=== PATIENT | male | born 1995 | race Caucasian/White ===

== ENCOUNTER → 2020-08-03 15:05 | Outpatient (CLI) | payer MEDICAID, SELFPAY ==
[2020-08-03 15:48] LABS: Absolute Lymphocyte Count 1.63 X10^3/uL (0.83-4.51); Absolute Neutrophil Count 2.1 X10^3/uL (2.0-7.7); Basophil# 0.03 X10^3/uL; Basophil% 0.7 % (0-1); Eosinophil# 0.07 X10^3/uL; Eosinophils% 1.6 % (0-5); Hemoglobin 15.2 g/dL (13.0-16.5); Lymphocyte # 1.63 X10^3/ul (4.0); Lymphocyte % 37.3 % (19-41); Mean Corp Hgb Conc 33.8 g/dL (32-36); Mean Corpuscular Volume 91.6 fL (80-94); Mean Platelet Vol. 12.1 fl (6.2-12.0); Monocyte# 0.53 X10^3/uL; Monocyte% 12.1 % (0-10); NRBC Flagged by Analyzer 0 % (0-5); Neutrophil % 48.1 % (47-70); Platelet Count 197 K/mm3 (150-450); RBC Distribution Width CV 11.4 % (11.6-14.6); RBC Distribution Width SD 38.5 fl (35.1-43.9); Red Blood Count 4.91 M/mm3 (4.6-6.2); White Blood Count 4.4 K/mm3 (4.4-11.0)
[2020-08-03 16:55] LABS: ALB/GLOB Ratio 1.3 RATIO (0.9-2.4); AST(SGOT) 12 U/L (15-37); Alanine Aminotransfer ALT/SGPT 17 U/L (16-61); Albumin, Serum 4.3 g/dL (3.2-5.0); Alkaline Phosphatase 70 U/L (45-117); Anion Gap 4 (5-15); BUN 9 mg/dL (7-18); BUN/Creat Ratio 10.7 RATIO (10-20); CRP < 2.90 mg/L (0.0-3.0); Calcium,Total 9.2 mg/dL (8.5-10.1); Chloride 105 mmol/L (98-107); Cholesterol 116 mg/dL (200); Creatinine, Serum 0.84 mg/dL (0.70-1.30); EST Glomerular Filtration Rate 116 mL/min (>60); Est Glom Filt Rate - Afr Amer 141 mL/min (>60); Globulin 3.2 g/dL (2.2-4.2); Glucose 83 mg/dL (74-106); High Density Lipoprotein 35 mg/dL; Potassium 3.9 mmol/L (3.5-5.1); Protein, Total 7.5 g/dL (6.4-8.2); Rheumatoid Factor < 10.0 IU/mL (<15); Sodium Level 137 mmol/L (136-145); T4 Free Direct 1.39 ng/dL (0.76-1.46); Thyroid Stim Hormone (TSH) 0.82 uIU/mL (0.358-3.74); Triglycerides 78 mg/dL; Very Low Density Lipoprotein 16 mg/dL (5-40)
[2020-08-03 17:09] LABS: HIV - WCH Non-Reactive (Nonreactive)
[2020-08-03 17:19] LABS: Hemoglobin A1c 5.1 % (3.8-5.6)
[2020-08-04 08:43] LABS: Erythrocyte Sedimentation Rate 2 mm/hr (0-15)
[2020-08-04 10:43] LABS: Hepatitis C Antibody Non-Reactive (Nonreactive)
[2020-08-05 02:04] LABS: Rapid Plasmin Reagin (RPR) NONREACTIVE (NONREACTIVE)
[2020-08-05 15:08] LABS: ANTINUCLEAR ANTIBODIES DIRECT Negative (Negative)
== END ==
PROVIDERS: Referring Provider Nurse Practitioner Family; Visit Provider Nurse Practitioner Family
DX: F41.9 Anxiety disorder, unspecified (principal); F33.1 Major depressive disorder, recurrent, moderate; Z20.9 Contact with and (suspected) exposure to unspecified communicable disease; R53.83 Other fatigue
CPT/HCPCS: 36415; 80053; 80061; 82306; 83036; 84439; 84443; 85025; 85652; 86038; 86140; 86431; 86592; 86703; 86803

== ENCOUNTER 2021-03-15 09:00 | Outpatient (RCR) | payer MEDICAID, SELFPAY ==
--- NOTE | 2021-03-15 09:02 | BH.SGPN.GN ---
Behaviors/Verbalizations/Mental Status: []Pt eye contact fair, casually dressed, motor activity appropriate, speech normal rate and tone, mood anxious, constricted affect, thoughts linear and intact, no evidence of delusions or hallucinations. Client Response/Progress/Benefit: [] Patient has a precipitant as evidenced by him providing limited input. Patient shared feeling tired this morning because he had a hard time sleeping last night due to feeling anxious. Patient appeared to connect with other group members comments as evidenced by him nodding his head. Seemed to benefit from support from peers and being oriented to IOP. Patient's first day in IOP. Patient recommended to continue IOP to increase healthy coping skills, improve functioning, and prevent decompensation. Narrative Note: []
--- NOTE | 2021-03-15 10:10 | BH.SGPN.GN ---
Behaviors/Verbalizations/Mental Status: []Eye contact is good. Motor activity is appropriate. Appearance is casual. Speech is Appropriate. Mood is anxious, depressed. Affect is constricted. Thoughts are linear and logical. No evidence of psychosis. Client Response/Progress/Benefit: [] Pt first day in IOP tx, receptive of group and was an engaged participant. Remained attentive and took notes throughout, however taking on a more passive role. Attentive as group worked to process quote, nodding throughout discussion on importance of celebrating small accomplishments when working towards a goal. Listened as group members identified the benefits of setting goals which include: sense of accomplishment, builds self-esteem, increases motivation, holds us accountable, and helps to measure progress. Again, remaining attentive as peers worked to identify the barriers to setting goals or things that keep us from accomplishing goals. Pt declined to identify his own personal barrier to achieving goals, though nodding as peers discussed negative self-talk as a barrier. Attentive during psycho-education on developing SMART (Specific, Measurable, Achievable, Realistic, Timely) goals. Benefited from education on the benefits of goal-setting and increased insight into skills to set realistic and attainable goals. Narrative Note: []
--- NOTE | 2021-03-15 11:10 | BH.SGPN.GN ---
Behaviors/Verbalizations/Mental Status: []Client alert and oriented, casually dressed and groomed. Eye contact fair. Motor activity appropriate. Speech within normal limits. Affect constricted, mood anxious and dysthymic. Thoughts linear, logical, no signs of hallucinations or delusions. Client Response/Progress/Benefit: []Client was engaged during discussion, did well to complete activity and process with the group. Client was willing to complete the worksheet in which he was challenged to develop a personal SMART goal. Client chose the goal to get back to working out for 30 minutes a day for the next five days. Client stated this will benefit him by giving him an outlet and will increase self-esteem. Client identified barriers which included: breathing problems, negative thinking, and feeling unmotivated. Client worked with his small group to identify solutions for his barriers, and they were able to identify a solution for each barrier.. Benefited from this group by developing a short-term SMART goal related to mental health. First day of IOP tx. Will continue IOP tx to prevent decompensation, learn healthy coping skills, and improve overall functioning. Narrative Note: []
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
--- NOTE | 2021-03-15 14:49 | BH.MTP_ITS ---
Master Treatment Plan - Patient Information Program Physician:: Dr. Ibarra Primary Therapist:: Annailse Keene, [facility] - Psychiatric Diagnoses Psychiatric Diagnoses:: Dysthymia; major depressive disorder, recurrent, severe without psychosis; PTSD; anxiety disorder, NOS; history of ADHD; Cluster B traits Diagnosis Code(s):: F34.1 - Estimated LOS Estimated LOS (in weeks):: 6 Problem/Goal #1 - Problem/Goal #1 Stated Goal:: Client will decrease depressive symptoms, isolation, and worthlessness due to Major Depressive Disorder through Intensive Outpatient Program. Description of Barriers: Pt's negative thoughts, low motivation, apathy, loss of interest, difficulty getting out of bed, paranoia, poor emotion regulation and limited support system could be barriers to treatment progress. Functional Impact: Pt referred by grandparent due to worsening depression, anxiety and suicidal ideation. About a month ago pt had suicidal ideation with plan and intent to shoot self with roommate's gun. Pt did not follow through with plan instead reached out to friends for support. Pt's depression and anxiety had impacted pt's ability to maintain a job for more than 3 months at a time. Pt's anxious symptoms make it hard at [facility] to go to grocery stores, pump gas, go out with friends and makes daily activities difficult. Pt endorses depressed mood with no motivation, no energy, increased sleep, anhedonia, no concentration, racing thoughts, paranoia, hopelessness, and worthlessness. Pt denies active suicidal thoughts currently. States he has passive thoughts of , but no thoughts of wanting to actually kill himself. - Objectives Objective #1 Stated Objective: Client will learn and utilize 2-3 healthy coping strategies to manage depressive symptoms. Interventions: Therapist will utilize CBT techniques to assist client with understanding the connection between thoughts, feelings and behaviors. Education will be provided on behavioral activation. Therapist will assist client in learn ing internal coping strategies to manage depressive symptoms, along with helping client identify triggers. Discharge Criteria: Client will have achieved this goal when can verbalize and practiced at least 2 healthy coping strategies that successfully manage depressive symptoms. Target Date: 04/26/21 Review Date: 04/12/21 Objective #2 Stated Objective: Pt will decrease depressive symptoms AEB pt?s score on the DSM 5 cross-cutting measure and improve pt?s daily functioning. Interventions: Through groups and individual therapy, pt will be provided with education on cognitive distortions, mistaken beliefs, and identifying and combating negative self-talk. Therapist will assist pt with getting back into the activities she once enjoyed as well as increasing healthy coping strategies. Discharge Criteria: Pt will have met this goal when pt?s score on the DSM 5 cross cutting measure for depression has been decreased and per pt?s report daily functioning has improved. Target Date: 04/26/21 Review Date: 04/12/21 Problem/Goal #2 - Problem/Goal #2 Stated Goal:: Client will reduce overall frequency, intensity, and duration of the anxiety so that daily functioning is not impaired. Description of Barriers: Pt's negative thoughts, low motivation, apathy, loss of interest, difficulty getting out of bed, paranoia, poor emotion regulation and limited support system could be barriers to treatment progress. Functional Impact: Pt referred by grandparent due to worsening depression, anxiety and suicidal ideation. About a month ago pt had suicidal ideation with plan and intent to shoot self with roommate's gun. Pt did not follow through with plan instead reached out to friends for support. Pt's depression and anxiety had impacted pt's ability to maintain a job for more than 3 months at a time. Pt's anxious symptoms make it hard at [facility] to go to grocery stores, pump gas, go out with friends and makes daily activities difficult. Pt endorses depressed mood with no motivation, no energy, increased sleep, anhedonia, no concentration, racing thoughts, paranoia, hopelessness, and worthlessness. Pt denies active suicidal thoughts currently. States he has passive thoughts of , but no thoughts of wanting to actually kill himself. - Objectives Objective #1 Stated Objective: Client will learn and implement 2-3 calming skills to reduce overall anxiety and manage anxiety symptoms. Interventions: Therapist will provide psychoeducation about common trauma responses. Assist pt with identifying warning signs of anxiety. Will help pt. explore symptoms and helpful coping skills for intrusive thoughts.Therapist will teach client calming/relaxation skills and assign client homework which practices relaxation skills daily.? Discharge Criteria: Client will have achieved this goal when can verbalize at least 2 calming skills and successfully implement skills to help manage anxious symptoms. Target Date: 04/26/21 Review Date: 06/08/21 Objective #2 Stated Objective: Pt will decrease anxious symptoms AEB pt?s score on the DSM 5 cross-cutting measure improve pt?s daily functioning. Interventions: Through groups and individual therapy, pt will be provided education about anxiety?s impact on body and common physiological reaction to anxiety. Therapist will teach pt appropriate breathing techniques and build healthy coping skills to manage daily anxieties. Discharge Criteria: Pt will have met this goal when pt?s score on the DSM 5 cross cutting measure for anxiety has been decreased and per pt?s report daily functioning has improved. Target Date: 04/26/21 Review Date: 04/12/21
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
[2021-03-16 09:55] VITALS: BP 128/76; PULSE 75
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
--- NOTE | 2021-03-16 13:12 | BH.DR.ITP ---
Initial Treatment Plan Patient Information Visit Information: ADMISSION DATE: EXPECTED LOS: 4-6 weeks Problems/Symptoms Problem #1:: Depression Symptom:: Sadness, hopelessness, worthlessness, low motivation, anhedonia, biological disruption of sleep and appetite, low energy and concentration, guilt, passive thoughts of , history of suicidal ideation Symptom:: . Problem #2:: Anxiety Symptom:: Worry, rumination, panic attacks, flashbacks, nightmares, reexperiencing, avoidance
--- NOTE | 2021-03-18 09:03 | BH.SGPN.GN ---
Behaviors/Verbalizations/Mental Status: []Pt eye contact poor, casually dressed, motor activity appropriate, speech normal rate and tone, mood depressed and agitated, congruent affect, thoughts linear and intact, no evidence of delusions or hallucinations. Patient indicated suicidal ideation as a 2/5 which is below usual baseline, no plan or intent on daily symptom tracker. Client Response/Progress/Benefit: [] Patient receptive of session, though struggling to remain engaged throughout AEB looking down much of session and self-reported ruminating thoughts. Pt shared he had been doing well for a few days but then had an argument with his fianc? and has been struggling since. Expressed feeling she is unwilling to address a prior discretion that pt feels is a barrier to the relationship. Declined to share further and expressed feelings of hopelessness; however, was receptive of group encouragement and suggestions on strategies to begin improving overall mood and perspective. Continues to struggle with internalizing skills, interpersonal skills, and negative self-talk which impact progress and reinforce depressive sx. Patient to continue IOP to promote healthy change behaviors, continue to improve sx management and communication with supports, and prevent decompensation. Narrative Note: []
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
--- NOTE | 2021-03-18 11:15 | BH.SGPN.GN ---
Behaviors/Verbalizations/Mental Status: []Client alert and oriented, casually dressed and groomed. Eye contact fair. Motor activity appropriate. Speech within normal limits. Affect flat, mood depressed. Thoughts linear, logical, no signs of hallucinations or delusions. Client Response/Progress/Benefit: []Client engaged participant AEB pt providing input throughout discussion, engaged in activity and appeared to listen attentively to peers. Appeared to listen ideas on how to cope with internal barriers that keep clients stuck from moving towards goals. Client able to identify barriers to desired reality which includes: fear of failure and not being good enough, toxic family, trapped from past, difficulty setting boundaries, and anger. Client stated he wants to focus on setting realistic expectations to help with fear of failure. Benefited from group by identifying obstacles and solutions to desired reality. Will continue IOP tx to increase healthy coping skills, challenge distorted thoughts and prevent decompensation. Narrative Note: []
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
--- NOTE | 2021-03-21 09:00 | BH.SGPN.GN ---
Behaviors/Verbalizations/Mental Status: [] Eye contact is good. Motor activity is appropriate. Appearance is casual. Speech is Appropriate. Mood is depressed. Affect is flat. Thoughts are linear and logical. No evidence of psychosis. Reviewed daily check in sheet and pt reports 1/5 for suicidal thoughts and 0/5 for intent. Client Response/Progress/Benefit: [] Pt was an active participant in group discussion. Attentive. Provided appropriate feedback. Reports that his weekend was not the greatest Received his COVID which led to fatigue and sleeping. Reports I was super anxious all weekend and I had a panic attack. The panic attacks lasted about 30 minutes. He discussed some stressors however was superficial. Limited progress noted. Mental health win was getting up and coming to IOP today. Benefited from group discussion, support, and encouragement. Will continue in IOP to maintain safety, increase healthy coping skills, and prevent decompensation. Narrative Note: []
--- NOTE | 2021-03-21 10:05 | BH.SGPN.GN ---
Behaviors/Verbalizations/Mental Status: []Client alert and oriented, neatly dressed and groomed. Eye contact good. Motor activity appropriate. Speech within normal limits. Affect constricted, mood depressed. Thoughts linear, logical, no signs of hallucinations or delusions. Client Response/Progress/Benefit: []Pt was mostly a passive participant in group discussion, but took notes and provided some input. Connected with quote. Attentive during psychoeducation. Pt worked with group to identify forces that can impact growth and overall mental health. Pt was doing a lot of nodding during the metaphor and shared that finding balance between positive and negative forces requires willingness to adjust. Group discussed examples of positive forces such as healthy coping skills and insight as well as negative forces such as distorted thoughts. Pt benefited from increased awareness of the impact positive and negative forces can have on mental health and personal growth. Will continue IOP tx to prevent decompensation, learn healthy coping skills, and increase emotional regulation skills. Narrative Note: []
--- NOTE | 2021-03-21 11:06 | BH.SGPN.GN ---
Behaviors/Verbalizations/Mental Status: []Client alert and oriented, casually dressed and groomed. Eye contact good. Motor activity appropriate. Speech WNL. Affect congruent, mood anxious and depressed. Thoughts linear, logical, no signs of hallucinations or delusions. Client Response/Progress/Benefit: []Pt engaged during session AEB providing input when elicited, actively participating in activity, completing worksheet, and taking notes throughout. Did well to take on a leadership role in activity portion of session. Group processed the activity and identified positive and negative forces impacting ability to complete the challenge. Pt was attentive during psychoeducation and appeared to benefit from increased insight on the impact of own personal negative and positive forces on mental wellness. Identified personal positive forces as: coming to IOP tx, his grandma, motivation to be a ?better person?, medication, and willingness to work on mental health. Noted plans to increase positive impact of his supports by reaching out to then more consistently. Identified negative forces as: negative thoughts, lack of healthy distress tolerance skills, poor self-compassion, arguing with his fianc?, and no job/financial strain. Identified wanting to focus on improving his ability to better cope with distress. Recommended continued IOP tx to increase healthy coping skill application, continue to improve emotional stability, and prevent decompensation. Narrative Note: []
--- NOTE | 2021-03-23 09:03 | BH.SGPN.GN ---
Behaviors/Verbalizations/Mental Status: []Client alert and oriented, neatly dressed and groomed. Eye contact good. Motor activity appropriate. Speech within normal limits. Affect congruent, mood euthymic and anxious. Thoughts linear, logical, no signs of hallucinations or delusions. Reviewed client?s symptom tracker, risk for suicidal ideation reported as 1/ which is below baseline, denies plan, or intent as of 03/23/21 Client Response/Progress/Benefit: [] Client responded well to session, attentive and engaged. Client reports feeling hopeful this morning which is much improved from feeling depressed last week. Shared he attributes this to reaching out to his grandmother for support. Identified current positives as making strides in his ability to identify and challenge negative perspective, continue coming to IOP tx, and spending time outdoors for grounding/mindfulness purposes. Client expressed this helped him to challenge negative thoughts of not feeling supported and fears of struggling with his mental health terminal carman. Identified coping skills he has been using to include opposite action, positive self-talk, reaching out to supports, perspective challenging, and making time for self-care. Appeared to benefit from reflecting on progress. Will continue IOP tx to promote gains, further decrease depressive sx, and improve daily functioning. Narrative Note: []
--- NOTE | 2021-03-23 10:10 | BH.SGPN.GN ---
Behaviors/Verbalizations/Mental Status: []Client alert and oriented, casually dressed and groomed. Eye contact fair. Motor activity appropriate. Speech within normal limits. Affect constricted. Mood dysthymic and anxious. Thoughts linear, logical, no signs of hallucinations or delusions. Client Response/Progress/Benefit: []Pt responded well to session AEB pt providing input and listening attentively to peers. Worked with group to identify external barriers that can keep us stuck include: intrusive thoughts, anxiety, outside stressors, past trauma, environment, work place, and mental health. Worked with group to identify internal barriers that keep us stuck include: fear of failure, avoidance, negative self-talk, shut down, avoidance, sleep, using substances, and other unhealthy coping skills. Attentive to discussion about underlying thoughts behind what keeps people stuck. Pt shared negative thoughts that keep him stuck include: I can't ever make up for what I've done; I'll never have a healthy life because can't do anything right. Pt seemed to benefit from increased awareness of maintenance cycles. Pt to continue IOP to continue use of healthy coping, challenge distorted thoughts and prevent decompensation. Pt to continue IOP to increase use of healthy coping, challenge distorted thoughts and prevent decompensation.
--- NOTE | 2021-03-23 11:15 | BH.SGPN.GN ---
Behaviors/Verbalizations/Mental Status: []Client alert and oriented, casually dressed and groomed. Eye contact good. Motor activity appropriate. Speech within normal limits. Affect constricted, mood depressed. Thoughts linear, logical, no signs of hallucinations or delusions. Client Response/Progress/Benefit: []Client responded well to session, contributing to discussion and providing good feedback. Client appeared to connect with maintenance cycles and recognized how negative thinking can keep a person stuck. Client identified a negative thought that has kept client stuck. Client?s negative thought was ?my partner doesn?t really love me because I?m a loser, annoying, and just a comfort stepping stop for her.? Client acknowledges this thought is unrealistic as it is labeling and a magnification. Client reframed this thought to ?we?ve been together for so long, she must love me if she?s been here.? Client shared reframing this thought would make client feel better about talking with his partner and he would feel less drained. Client appeared to benefit from practicing challenging negative thinking. Will continue IOP tx to prevent decompensation, reduce depressive thought patterns, and improve functioning. Narrative Note: []
--- NOTE | 2021-03-25 10:12 | BH.SGPN.GN ---
Behaviors/Verbalizations/Mental Status: []Client alert and oriented, casually dressed, hygiene appeared to be tended to. Eye contact fair. Motor activity appropriate. Speech within normal limits. Affect constricted, mood dysthymic. Thoughts linear, logical, no signs of hallucinations or delusions. Client Response/Progress/Benefit: []Client responded well to session, attentive and engaged throughout discussion and activity. Client worked with group to identify impacts of fearing failure. Client stated fear of failing can head to self-sabotage which then leads to withdrawing from others. Assisted group with identifying how fear of failure can form which includes: past failures, family dynamics, comparing self to others, and high expectations. Client seemed to connect how failures can lead to positive changes. Client appeared to benefit from gaining awareness of the impact fear of failure can have on one?s mental health and wellbeing. Will continue IOP to continue use of healthy coping, reduce negative thinking, and prevent decompensation.
--- NOTE | 2021-03-25 11:12 | BH.SGPN.GN ---
Behaviors/Verbalizations/Mental Status: []Client alert and oriented, casually dressed and groomed. Eye contact good. Motor activity WNL. Speech within normal limits. Affect constricted, mood anxious and dysthymic. Thoughts linear, logical, no signs of hallucinations or delusions. Client Response/Progress/Benefit: []Client responded well to session, engaged and actively participating throughout. Client completed the fear of failure worksheet and reported that fear of failure has kept client from keeping a job and reaching his goals. Client able to identify thoughts and behaviors that reinforce personal fear of failure which included: black and white morals, societal standards, self-criticism, and not acknowledging strengths. Client attentive during discussion of the different strategies to help overcome fear of failure. Identified wanting to work on lowering his expectations so they are more realistic. Client appeared to benefit from learning ways to overcome fear of failure. Will continue IOP tx to prevent decompensation, learn healthy coping skills, and improve functioning. Narrative Note: []
--- NOTE | 2021-03-25 13:24 | BH.MDN ---
Multi-Disciplinary Note - Note 45-min Individual Time Started:: 09:10 Date: 03/25/21 Purpose of session/treatment goals addressed:: Purpose of session was to address goals 1 and 2 from [facility]. Eye Contact:: Fair Motor Activity:: Restless Appearance:: Casual Speech:: Appropriate Mood:: Anxious, Dysthymic Affect:: Constricted Thoughts:: Linear, Logical, No evidence of hallucinations/delusions noted Staff Interventions:: motivational interviewing, CBT techniques, rapport building, goal setting Client Response:: Pt reported having a structured schedule by attending IOP 3 times a week has been helping his mood because it makes him wake up in the morning. Pt reported things have improved with his girlfriend in the last week. Pt stated she is trying to understand what he is giong through right now and is being more understanding. Pt reported he has been stopping himself before he responds to his girlfriend to reduce his reactive and aggressive responses when he is angry. Pt stated he did complete some of the homework provided from last session about connection between thoughts, behaviors and emotions, however struggled with staying focused. Pt reported he has been using skills of taking a walk and expressing how he feels more openly. Pt expressed frustration with living with his grandparents. Pt stated he feels his grandparents are trying to make him do what they want and are not listening to his needs. Pt stated every week he has an evaluation from his grandparents, has to be in bed by 11pm and ask before he leaves the house. Pt reported he feels their expectations are very high. Recognizes importance of communicating concerns to his grandparents instead of keeping it to himself. Risks/Concerns:: denies current suicidal ideation, plan or intention to date. Progress Toward Goals/Plan:: Progress noted with pt reporting use of healthy coping skills and improvement with emotion regulation. Continued problems with depression, anxiety and difficulty managing stressful situations. Pt to continue IOP to increase healthy coipng, challenge distorted thoughts and prevent decompensation. Time Stopped:: 10:00
--- NOTE | 2021-03-28 09:00 | BH.SGPN.GN ---
Behaviors/Verbalizations/Mental Status: [] Eye contact is good. Motor activity is appropriate. Appearance is casual. Speech is Appropriate. Mood is depressed. Affect is flat. Thoughts are linear and logical. No evidence of psychosis. Reviewed daily check in sheet and pt reports 1/5 for suicidal thoughts and 0/5 for intent. Client Response/Progress/Benefit: [] Pt was an active participant in group discussion. Attentive. Provided appropriate feedback. Emotion for today hopeful. Stayed active over the weekend help his grandparents on their farm by mowing and painting. Spent relaxing time with GF on Sunday as well. He talked at length about reframing his thoughts which has helped lower his anger and resentment. Gave examples. He reports feeling slightly better in the past week with increase hope. Actually set up a job interview this week and is hoping to get part-time work. He is fearful that full-time work may lead to overwhelming himself. Progress noted per pt report. Benefited from group support, encouragement, and discussions. Will continue in IOP to maintain safety, increase healthy coping, and improve functioning. Narrative Note: []
--- NOTE | 2021-03-28 10:14 | BH.SGPN.GN ---
Behaviors/Verbalizations/Mental Status: []Client alert and oriented, casually dressed and groomed. Eye contact good. Motor activity WNL. Speech within normal limits. Affect congruent, mood euthymic. Thoughts linear, logical, no evidence of delusions or hallucinations. Client Response/Progress/Benefit: [] Client engaged throughout session AEB providing input and personal examples, taking notes, and actively listening throughout. Appeared to connect with discussion on crisis and how unhealthy coping could result in a personal crisis. Shared examples of struggling to manage small stressors which then turned into larger personal crisis experiences. Group reflected on examples of what a crisis can be and the importance of having awareness of personal warning signs in order to prevent reaching crisis point. Shared that loss of a relationship could be a potential personal crisis trigger. Group identified potential warning signs for crisis and client completed the personal warning signs worksheet. Client identified personal crisis warning signs to include: poor self-image, eating less, and apathy. Client reports they can tell when struggling if feeling more apathetic about life in general or not enjoying the small things. Client benefited from increasing awareness of what leads to crisis and personal warning signs. Client will continue IOP tx to prevent decompensation, continue to promote mood stability, and increase healthy coping skills. Narrative Note: []
--- NOTE | 2021-03-28 11:15 | BH.SGPN.GN ---
Behaviors/Verbalizations/Mental Status: []Client alert and oriented, casually dressed and groomed. Eye contact fair. Motor activity appropriate. Speech within normal limits. Affect congruent. Mood euthymic. Thoughts linear, logical, no signs of hallucinations or delusions. Client Response/Progress/Benefit: []Client responded well to session as evidenced by client listening attentively to others and providing strategies during discussion. Client identified his warning signs for crisis and gained further awareness of earliest warning signs. Client created a crisis action plan to help client better manage warning signs for crisis. Client?s action plan for poor self-hygiene included: opposite action, set a timer and when it goes off he has to get up and take a shower, and schedule what days/time he wants to take a shower to become routine. Client appeared to benefit from creating a crisis action plan and increasing self-awareness. Client to continue IOP tx to continue use of healthy coping, challenge distorted thoughts and prevent decompensation.
--- NOTE | 2021-03-29 09:00 | BH.SGPN.GN ---
Behaviors/Verbalizations/Mental Status: [] Eye contact is good. Motor activity is appropriate. Appearance is casual. Speech is Appropriate. Mood is depressed. Affect is flat. Thoughts are linear and logical. No evidence of psychosis. Reviewed daily check in sheet and no reports of suicidal ideations or intent. Client Response/Progress/Benefit: [] Pt was an active participant in group discussion. Attentive. Provided appropriate feedback. Emotion for today is stressed. Mental health win was finishing up some [place] work [place] [employer]. Feels more motivated and energetic recently. Stressed due to job interview this afternoon. He is worried that he will take the job and get overwhelmed and not set boundaries. He discussed some of the previous struggles that he has had at work in the past. Progress noted per pt report. Benefited from group support, encouragement, and feedback. Will continue in IOP to maintain safety, increase healthy coping, and stabilize mood. Narrative Note: []
--- NOTE | 2021-03-29 10:16 | BH.SGPN.GN ---
Behaviors/Verbalizations/Mental Status: []Client alert and oriented, casually dressed and groomed. Eye contact fair to good. Motor activity appropriate. Speech within normal limits, limited input. Affect congruent, mood dysthymic. Thoughts linear, logical, no signs of hallucinations or delusions Client Response/Progress/Benefit: [] Client remained a mostly passive participant but was engaged in session AEB client nodding throughout, taking notes, and listening attentively to peers. Client shared connecting with the importance of setting boundaries, nodding as others discussed impacts on mental health and relationships when you don?t. Client assisted group with identifying barriers to setting healthy boundaries. These included: fear of abandonment, fear of being vulnerable, self-doubt, discomfort, and feeling it?s ?too hard?. Shared a personal barrier he has experienced is prior negative experiences. Listened and taking notes during discussion on different types of boundaries. Client seemed to benefit from increased awareness of how boundaries impact mental health. Will continue IOP tx to improve use of healthy coping, improve mood stability and healthy boundary setting with supports, and reduce mental health sx. Narrative Note: []
--- NOTE | 2021-03-29 13:24 | BH.MDN ---
Multi-Disciplinary Note - Note 60-min Individual Time Started:: 11:50 Date: 03/29/21 Purpose of session/treatment goals addressed:: Purpose of session was to address goal 1 from treatment team. Eye Contact:: Good Motor Activity:: Appropriate Appearance:: Disheveled Speech:: Appropriate Mood:: Irritable - patient ran out of cigarettes today., Dysthymic Affect:: Constricted Thoughts:: Linear, Logical, No evidence of hallucinations/delusions noted Staff Interventions:: Therapist used open ended questions to elicit pt's current symptoms and stressors. Reviewed homework from last session, helping pt with reframing negative thought. Processed relationship stress with girlfriend, encouraged couples counseling. Discussed potential problems pt's rigid mindset can have on relationships. Assisted pt with identifying anger triggers. Provided homework to continue identifying negative thoughts and reframing. Client Response:: Pt reported he did call the counseling center to ask about getting referral for their apartments. Pt stated the person on the phone said he can't get a referral until he sees his psychiatrist, which isn't until April 18. Pt stated he will call again either for a cancellation or to get reestablisehd with a high risk case manager. Pt reported he is unsure if his grandparents are expecting him to move out at the end of this month. Pt stated his grandparents haven't said anything to him. Pt reported he does have an interview today for a position at [employer]. Pt stated he is hoping having a part-time job will give him structure and satisfy his grandparents that keep pushing him to get a job despite pt communicating he doesn't think he is ready since just started treatment. Pt reported if he gets the job he doesn't want more that 20 hours a week and will requrest to have IOP days off so he can still get treatment. Pt reported he did complete his homework of doing the thought log. Pt stated he was unable to identify evidence against his thought or reframe the thought. Pt stated he had heard his grandparents whispering upstairs. Pt reported automatic thought was I did something wrong. 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 With assistance from therapist recognizes he has no evidence support his automatic thought that his grandparents were talking about him. Pt reframed the negative thought to I am working on myself and trying to get better. Pt stated he can connect how changing his thoughts would help improve his emotions. Pt stated he has been doing better with being mindful how he responds to his girlfriend. Pt reported he would like to go to couples counseling but his girlfriend seems hesitant. Pt stated he wants them to work together on communication and respecting each others boundaries. Pt agreed with therapsit that he does have rigid expectations of his girlfriend that can result in him become angry easy. Pt stated he is working on being more flexible. Pt stated he struggles with identifying his anger triggers. With help he identified anger triggers to be: somebody raising their voice at him, getting in his personal bubble, broken promises, and routine changes. Pt agreeable to complete homework of thought log. Risks/Concerns:: denies current suicidal ideation, plan or intention to date. Progress Toward Goals/Plan:: Progress noted with pt reporting decrease in anger, anxiety and depressed symptoms. Pt showing increased awareness of negative thought patterns and improve use of healthy coping skills. Pt continues to struggle with emotion regulation, automatic negative thoughts and low motivation. Pt to cotinue IOP to continue use of healthy coping, challenge distorted thoughts and prevent decompensation. Time Stopped:: 12:45
--- NOTE | 2021-03-31 09:04 | BH.SGPN.GN ---
Behaviors/Verbalizations/Mental Status: []Client alert and oriented, neatly dressed and groomed. Eye contact good. Motor activity appropriate. Speech within normal limits. Affect constricted, mood depressed. Thoughts linear, logical, no signs of hallucinations or delusions. Reviewed client?s symptom tracker. Client was a 2/5 for thoughts of suicide and 0/5 for intent. No risk as of 03/31/21. Client Response/Progress/Benefit: []Client responded well to session, providing insight to discussion. Client reports feeling anxious and depressed this morning. Client stated he forgot to take his medications the other day, so client have difficulty sleeping which increased anxiety. Client has also been having relationship problems which increases depression and negative thinking. Client shared he has been trying to use opposite action such as doing yard work. Client also got a job which is positive. Appeared to benefit from connecting with peers and reflecting on use of coping skills. Will continue IOP tx to prevent decompensation, increase mood stability, and gain insight to unhelpful thinking patterns. Narrative Note: []
--- NOTE | 2021-03-31 10:20 | BH.SGPN.GN ---
Behaviors/Verbalizations/Mental Status: []Eye contact is good. Alert and oriented. Motor activity is appropriate. Appearance is casual. grooming is appropriate. Speech is Appropriate. Mood is euthymic. Affect is congruent. Thoughts are linear and logical. No evidence of psychosis or hallucinations. Client Response/Progress/Benefit: [] Client responded well to session, engaged, and participated in discussion and group activity. Client connected with topic of managing emotions, noting ?We can?t control the emotions that come, but we can reframe thoughts to handle them better. Remained engaged throughout discussion on common barriers to effective emotion regulation which included: shutting down, lack of healthy coping skills, learned behaviors, toxic people/environment, and suppressing emotions. Identified personal barrier of managing emotions as unhealthy coping skills becoming a habit and hx of poor communication. Engaged in challenge activity highlighting the connection between communication and effective emotion regulation. Client appeared to benefit from gaining increased awareness on common emotion regulation barriers and impacts of ineffective emotion regulation on mental health and personal relationships. Will continue IOP to promote continued use of healthy coping skills, increase communication with supports and self-advocacy skills, and improve daily functioning. Narrative Note: []
--- NOTE | 2021-03-31 11:20 | BH.SGPN.GN ---
Behaviors/Verbalizations/Mental Status: []Client alert and oriented, casually dressed and fairly groomed. Eye contact fair. Motor activity appropriate. Speech within normal limits. Affect constricted. Mood dysthymic. Thoughts linear, logical, no signs of hallucinations or delusions. Client Response/Progress/Benefit: []Client engaged in session AEB client providing input during discussion and completed worksheet. Attentively listening during psychoeducation on 4 zones of regulation and able to identify feelings and behaviors for each zone. Worked with group to identify coping skills one can use to support self in each zone. Client reported he is goes back and forth from the low state of alertness (blue zone) to heightened stat of alertness (yellow zone). Client stated going back and forth from blue and yellow impacts his ability to get anything done, beats self up, doesn't get good sleep and messes up his relationships. Benefited from increased education on zones of regulation or stages of alertness for emotions and healthy coping skills to use for each zone. Will continue IOP tx to continue use of healthy coping skills, improve daily functioning, and prevent decompensation.
== END 2021-04-04 23:59 ==
LOC: BHIOP 09:00
PROVIDERS: Referring Provider Psychiatry & Neurology Psychiatry; Visit Provider Psychiatry & Neurology Psychiatry
DX: F34.1 Dysthymic disorder (principal); F43.10 Post-traumatic stress disorder, unspecified; F41.9 Anxiety disorder, unspecified; F90.9 Attention-deficit hyperactivity disorder, unspecified type; F17.210 Nicotine dependence, cigarettes, uncomplicated
CPT/HCPCS: 90792; H0035; H2012; H2020; T1002; 90832; 90834; 90837

== ENCOUNTER → 2021-03-25 12:27 | Outpatient (CLI) | payer MEDICAID, SELFPAY ==
[2021-03-25 13:43] LABS: Thyroid Stim Hormone (TSH) 0.94 uIU/mL (0.358-3.74)
== END ==
PROVIDERS: Referring Provider Psychiatry & Neurology Psychiatry; Visit Provider Psychiatry & Neurology Psychiatry
DX: E55.9 Vitamin D deficiency, unspecified (principal)
CPT/HCPCS: 36415; 82306; 84443

== ENCOUNTER 2021-04-05 09:00 | Outpatient (RCR) | payer MEDICAID, SELFPAY ==
[2021-04-05 00:41] VITALS: BP 128/76; PULSE 75
--- NOTE | 2021-04-05 09:00 | BH.SGPN.GN ---
Behaviors/Verbalizations/Mental Status: [] Eye contact is good. Motor activity is appropriate. Appearance is casual. Speech is Appropriate. Mood is depressed. Affect is flat. Thoughts are linear and logical. No evidence of psychosis. Reviewed daily check in sheet and pt reports 1/5 for suicidal thoughts and 0/5 for intent. Client Response/Progress/Benefit: [] Pt was an active participant in group discussion. Attentive. Provided appropriate feedback. Daily symptom tracker notes 2/5 for depression and anxiety. Emotion for today is mixed bag. Mental health wins include completing opposite action and thought reframing skills over the weekend. These skills helped him complete tasks and avoid isolation and avoidance. Pt starts job this afternoon which is first in several months. He denies being stressed or anxious about the his first day at a new job. Progress noted per pt report. Benefited from group discussion, support, and feedback. Will continue in IOP to maintain safety, increase healthy coping, and prevent decompensation. Narrative Note: []
--- NOTE | 2021-04-05 10:10 | BH.SGPN.GN ---
Behaviors/Verbalizations/Mental Status: [] Eye contact is good. Motor activity is appropriate. Appearance is casual. Speech is Appropriate. Mood is depressed. Affect is flat. Thoughts are linear and logical. No evidence of psychosis. Client Response/Progress/Benefit: [] Pt was an active participant in group discussion and activity. Attentive during psychoeducation on factors that build resiliency. Worked with peers to to define resiliency in which they settled on bouncing back from difficult times. Along with peers also identified what could impact resilience which included; environment, upbringing, family MH beliefs, poverty, support, trauma, never learning coping skills, and emotions. Insight in how group experiential activity in which therapist induced chaotic environment impacted resilience and how group overcame it. Pt benefited by increasing awareness on the role of resilience in mental health and factors that can help build resiliency. Will continue in IOP to maintain safety, increase healthy coping, and prevent decompensation. Narrative Note: []
--- NOTE | 2021-04-05 11:14 | BH.SGPN.GN ---
Behaviors/Verbalizations/Mental Status: []Client alert and oriented, neatly dressed and groomed. Eye contact good. Motor activity appropriate. Speech within normal limits. Affect constricted, mood euthymic. Thoughts linear, logical, no signs of hallucinations or delusions. Client Response/Progress/Benefit: []Client responded well to session, engaged and participated throughout discussion. Client participated in the discussion of how each resiliency component can help increase personal resiliency. Client worked with group to identify ways to practice each of the resiliency traits reviewed. Client shared belief client has the resiliency trait of taking decisive action which has been ?both helpful and problematic? as client stated he can be ?stubborn? with decisions. Client would like to work on increasing his resiliency by keeping things in perspective and challenging thoughts. Appeared to benefit from reflecting on already existing resiliency traits and learning how to strengthen resilience. Will continue IOP tx to improve daily functioning, reduce negative thinking, and increase emotional regulation skills. Narrative Note: []
--- NOTE | 2021-04-06 15:01 | BH.COMM ---
Communication Note - Communication with Client Communication Note: Discussed vitamin D level results with Dr. Ibarra, verbal order for Vitamin D2 50,000 IU by mouth weekly, 4 capsules with 2 refills called in to [facility] and message left for client to return call to facility for new order.
--- NOTE | 2021-04-07 09:04 | BH.SGPN.GN ---
Behaviors/Verbalizations/Mental Status: [] Pt eye contact fair, casually dressed, motor activity appropriate, speech normal rate and tone, mood anxious, congruent affect, thoughts linear and intact, no evidence of delusions or hallucinations. Per patient symptom tracker patient indicates a 1/5 with 5 being severe and a 0/5 for suicidal intent. This is below pt's baseline. Client Response/Progress/Benefit: []Pt responded well to session AEB pt listening attentively to others and openly sharing thoughts and feelings. Pt identified mental health positive as improved communication especially with his girlfriend. Pt reported he is doing better with not thinking of the worst case scenario. Pt stated he did have a setback with getting angry at his girlfriend because he let his anxious thoughts convince him that his girlfriend was doing something behind his back. Pt reported needs continued work in this area. Pt identified additional positive as starting his job yesterday that went better than expected. Seemed to benefit from sharing thoughts and feelings. Pt to continue IOP to continue use of healthy coping, improve emotional regulation and prevent decompensation. Narrative Note: []
--- NOTE | 2021-04-07 10:10 | BH.SGPN.GN ---
Behaviors/Verbalizations/Mental Status: [] Eye contact is good. Motor activity is appropriate. Appearance is disheveled. Speech is Appropriate. Mood is depressed. Affect is flat. Thoughts are linear and logical. No evidence of psychosis. Client Response/Progress/Benefit: [] Pt was an active participant in group discussion and activity. Insight during activity that finding positive aspects of a picture was more challenging than identifying negatives. Pt along with peers were able to identify what could impact one's perspective which included; upbringing, core beliefs, environment, relationships, and sleep. Group was able to identify how a negative perspective could impact progress in mental health treatment leading to beliefs such as; I will not get better, nobody understands me, apathy, withdrawing, irritability, catastrophizing, disqualifying positives, focusing on flaws, personalizing, labeling, focusing on negatives, and convincing one to quit. Pt was able to identify a perspective that has been helpful for him which was having a more realistic outlook has helped me be more accepting. Benefited from group by increasing awareness on the role of perspective in mental health wellness. Will continue in IOP to maintain safety, improve functioning, and stabilize mood. Narrative Note: []
--- NOTE | 2021-04-07 10:17 | BH.SGPN.GN ---
Behaviors/Verbalizations/Mental Status: []Client alert and oriented, neatly dressed and groomed. Eye contact good. Motor activity appropriate. Speech within normal limits. Affect congruent, mood euthymic. Thoughts linear, logical, no signs of hallucinations or delusions. Client Response/Progress/Benefit: []Pt engaged participant AEB pt providing input throughout session, listening attentively to peers and completing strengths exploration handout. Pt did struggle to identify strengths which included adventurousness, humor, and assertiveness. Pt stated these strengths will help client?s mental health recovery by giving client an outlet, lightening stressful moments, and setting boundaries/ knowing limits. Pt seemed to benefit from increased awareness of personal strengths and improved understanding how perspective can impact view of self. Pt is to continue IOP tx reduce negative thinking patterns, increase self-awareness, and improve emotional regulation skills. Narrative Note: []
--- NOTE | 2021-04-08 09:00 | BH.SGPN.GN ---
Behaviors/Verbalizations/Mental Status: [] Eye contact is good. Motor activity is appropriate. Appearance is casual. Speech is Appropriate. Mood is depressed. Affect is flat. Thoughts are linear and logical. No evidence of psychosis. Reviewed daily check in sheet and pt did not report any suicidal ideations. Client Response/Progress/Benefit: [] Pt participated at times during group discussion. Attentive. Emotion for today is tired. Daily symptom tracker notes 2/5 for depression. Shared with the group not much has changed since last session. Mental health win was increased focus and concentration. More engaged and finding pleasure in activities. Shared briefly with the group how increase focus and engagement has benefited his mental health. Progress noted per pt report. Benefited from group discussion, support, and engagement. Will continue in IOP to increase healthy coping, stabilize mood, and prevent decompensation. Narrative Note: []
--- NOTE | 2021-04-08 10:10 | BH.SGPN.GN ---
Behaviors/Verbalizations/Mental Status: []Client alert and oriented, casually dressed and groomed. Eye contact fair. Motor activity appropriate. Speech within normal limits. Affect constricted, mood dysthymic. Thoughts linear, logical, no signs of hallucinations or delusions. Client Response/Progress/Benefit: []Client receptive to session, participating throughout. Provided input as the group brainstormed the positive and negative aspects of stress on physical and mental health. Group did well to identify the benefits of stress as well as the impact of distress on performance and mental health. 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 Client reports when his stress jar becomes overfilled his reaction is extreme irritability. Pt seemed to benefit from increased awareness of current stressors and importance of dealing with stressors. Recommended to continue IOP tx to improve daily functioning, reduce negative thinking, and prevent decompensation. Narrative Note: []
--- NOTE | 2021-04-08 11:15 | BH.SGPN.GN ---
Behaviors/Verbalizations/Mental Status: []Client alert and oriented, neatly dressed and groomed. Eye contact fair. Motor activity appropriate. Speech within normal limits. Affect constricted, mood dysthymic. Thoughts linear, logical, no signs of hallucinations or delusions. Client Response/Progress/Benefit: []Client engaged in session AEB listening attentively to others, providing input, and participating in activity. Client remained attentive during discussion about the 4 A's of managing stress and discussed connecting with the various benefits of each. Client was interactive during group activity and connected how the activity can translate into daily life. Client reports wanting to work on altering his stressors. Client reports he wants to prevent the unhealthy responses he has to stress. Appeared to benefit from learning different techniques to better manage stress. Client will continue IOP to reduce distorted thought patterns, improve functioning, and increase emotional regulation skills. Narrative Note: []
--- NOTE | 2021-04-08 15:28 | BH.MDN ---
Multi-Disciplinary Note - Note 45-min Individual Time Started:: 12:15 Date: 04/08/21 Purpose of session/treatment goals addressed:: Purpose of session was to address goals 1 and 2 from master treatment plan. Eye Contact:: Fair Motor Activity:: Appropriate Appearance:: Disheveled Speech:: Appropriate Mood:: Anxious, Dysthymic Affect:: Constricted Thoughts:: Linear, Logical, No evidence of hallucinations/delusions noted Staff Interventions:: Therapist used open ended questions to elicit pt's current symptoms and stressors. Processed recent stressor of argument with girlfriend. Discussed healthy communication skills. Reviewed homework, helped pt with identifying evidence against negative thought and reframing thought. Provided homework for pt to read provided handouts about core beliefs and start to identfiy personal core beliefs. Client Response:: Pt stated frustrated with his girlfriend because she often changes plans on him throughout the week. Pt reported last night they were supposed to see each other but she fell asleep and didn't respond until this morning. Pt stated they earlier in the week they were in a big fight and she blocked him on social media. Pt stated she was mad at him because he asked her why she keeps cancelling plans for them to be together. Pt identified anger triggers within relationship to be: gaslighting, change in plans, and vagueness. Pt stated he was been working on using better communication skills and thinking before he reacts. Pt shared his thought log with therapist stated he struggled with identifying evidence against the thoughts and couldn't reframe. With help from therapist pt able to reframe thoughts. For two of the thoughts pt had challenged the thoughts by using direct communication with another person to disprove irrational thought. Pt recognized sometimes he can challenge his distorted thoughts through action. Pt agreeable to complete provided homework for next session. Risks/Concerns:: denies current suicidal ideation, plan or intention to date. Progress Toward Goals/Plan:: Progress noted with reporting improved emotion regulation and attempting to use healthy communication skills. Continues to struggle with stress from relationship, distorted thoughts, and emotion reactivity. Pt consistent with attendance and completes provided homework. Pt to continue IOP to continue use of healthy coping skills, challenge distorted thoughts and prevent decompensation. Time Stopped:: 13:00
--- NOTE | 2021-04-11 09:00 | BH.SGPN.GN ---
Behaviors/Verbalizations/Mental Status: [] Pt eye contact fair, casually dressed, motor activity appropriate, speech normal rate and tone, mood dysthymic, affect constricted, thoughts linear and intact, no evidence of delusions or hallucinations. Reviewed client?s symptom tracker, no signs of suicidal ideation, plan, or intent as of today. Client Response/Progress/Benefit: []Pt responded well to session AEB by pt listening attentively to peers and sharing thoughts and feelings. Pt stated overall his weekend went well. Pt stated mental health positive as communicating openly and honestly with his girlfriend which he reported went well. Pt reported still identifies relationship as significant stressor but is putting forth effort to improve his responses to his girlfriend. Pt reported work has been a positive for him because gives him structure. Pt seemed to benefit from openly expressing thoughts and feelings. Pt to continue IOP to continue use of healthy coping skills, challenge distorted thoughts and prevent decompensation. Narrative Note: []
--- NOTE | 2021-04-11 11:18 | BH.SGPN.GN ---
Behaviors/Verbalizations/Mental Status: []Client alert and oriented, neatly dressed and groomed. Eye contact good. Motor activity appropriate. Speech within normal limits. Affect constricted, mood euthymic. Thoughts linear, logical, no signs of hallucinations or delusions Client Response/Progress/Benefit: []Client receptive of session, engaged throughout AEB client actively listening and contributing to discussion, as well as taking notes. Client completed worksheet identifying personal pitfalls impacting mental health progress. Client identified the following pitfalls: burning bridges, being over-dependent in relationships, and being overly empathetic. Attentive during group brainstorm of strategies to overcome pitfalls. Client will work on overcoming being overly empathetic by practicing reframing. Benefited from identifying personal pitfalls and strategies to overcome these pitfalls. Will continue IOP tx to improve mood stability, reduce cognitive distortions, and increase emotional regulation skills. Narrative Note: []
--- NOTE | 2021-04-11 14:13 | BH.MDN ---
Multi-Disciplinary Note - Note 45-min Individual Time Started:: 10:30 Date: 04/11/21 Purpose of session/treatment goals addressed:: Purpose of session was to address goal 1 from treatment plan. Eye Contact:: Fair Motor Activity:: Appropriate Appearance:: Disheveled Speech:: Appropriate Mood:: Anxious, Dysthymic Affect:: Constricted Thoughts:: Linear, Logical, No evidence of hallucinations/delusions noted Staff Interventions:: Therapist used open ended questions to elicit pt's current symptoms and stressors. Therapist processed stress about relationship, helping pt define what support he would like from girlfriend. Therapist assisted pt with identifying barriers within current relationship and discussed strategies to improve relationship. Therapist helped pt connect past trauma to current core beleif that the world is messed up. Remind pt of homework to complete about core beliefs. Client Response:: Pt stated he had thought things were improving within relationship after having open and honest discussion with her a couple days ago. However, pt stated she again changed plans on him from hanging out last night to wanting to do breakfast this morning but she didn't answser the phone. Pt reported they are currently in a fight about her flakey behavior. Pt stated the support he needs from his girlfriend is to see her at least 3 times a week and see her put forth more effort to be planful with him. Pt stated he usually only sees his girlfriend once a week. Pt reported frustration that it doesn't seem shes putting forth effort to see him. Pt stated she tells him she is scared to see him sometimes. Pt agreed she has fear he will be volatile like in the past which is barrier to them movign forward. Pt stated he has constant fear she is cheating on him since she did that in the past. Pt reported he has desire to work through their past with couples counselor but can't marlene her to go. Pt noted progress within himself becasue although relationship is struggling he can still identify positives in his life. Pt stated in the past his relationships were everything. Pt reported he is trying to work on being more confident and being okay with independence if relationship doesn't work out. Pt reported he does believe core belief that the world is messed up fuels his anger and rage. Pt stated the way he was treated as a child made him believe world can't be fixed. Pt reported he recognizes he sometimes looks for evidence to support this core belief which keeps him angry and stuck. Pt stated will work on completing core beliefs worksheet this week. Risks/Concerns:: denies current suicidal ideation, plan or intention to date. Progress Toward Goals/Plan:: Progress noted with increased self-awareness of triggers and negative core beliefs. Pt reporting decrease in anger outbursts. Relationship continues to be significant stressor. Pt has started job two weeks ago which seems to be helpful with providng schedule/routine. Pt to continue IOP to increase healthy coping, continue challenging distorted thoughts and prevent decompensation. Time Stopped:: 11:15
--- NOTE | 2021-04-13 12:30 | PCM.BH.PN ---
Progress Note Progress Note: History of Present Illness/Interim History: [] The patient is a 26-year-old male with a history of depression, PTSD and ADD who is seen in follow-up at the [facility] behavioral health IOP program. I last saw the patient about 1 month ago. At that time he was started on Wellbutrin XL. He says he is tolerating the medication well but he is taking at night as he feels it makes him tired. He says his mood is significantly less depressed than it was before and his anxiety is improved. He is getting much less symptoms of panic attacks lately than he was prior to starting this medication. He is functioning better at home and has had feelings of hopelessness only twice in the past 3 weeks. He denies any suicidal ideation but he is still having passive thoughts of about 3 times a week. But this is also an improvement over his functioning 1 month ago. Patient is sleeping about 6 hours a night which is also an improvement for him. He feels he is learning valuable skills in the IOP program. Current Psychiatric Medications: [] Remeron 15 mg p.o. nightly; Celexa 20 mg p.o. daily; hydroxyzine 10 mg p.o. up to 3 times a day; Wellbutrin XL 150 mg p.o. daily (x4 weeks) Mental Status Examination: [] The patient is seen via telehealth and appears to be normal for stated age and is casually dressed and groomed with good hygiene. He has no psychomotor agitation or retardation. Eye contact is good and speech is normal rate and rhythm and fluent with no pressure. Mood is depressed but improved. Affect is constricted. Thought process is goal-directed and organized. Thought content: There is evidence of passive thoughts of about 3 times a week. There is no evidence of suicidal or homicidal ideation. There is no evidence of hallucinations or delusions or plan for suicide. Impulsivity is moderate to high. Insight is improving. Judgment is intact. Diagnoses: [] [place] I: [] Dysthymia; major depressive disorder, recurrent, severe without psychosis; PTSD; anxiety disorder NOS; history of ADHD [place] II: [] Cluster B traits Woolwich III: [] Negative Woolwich IV:[]] Primary support and financial issues Plan: [] Patient will continue the IOP program at [facility] as the support, education, structure, and group therapy will hopefully present vent worsening of the patient's symptoms. He felt safe during the interview and if it anytime he does not feel safe he will let us know or go to the emergency room. The patient's lab results were discussed with him and he agrees to sampler pickup the vitamin D prescription that was sent in on April 06 for his low vitamin D level. Refills were given by prescription on his hydroxyzine, Wellbutrin XL and Celexa. No dosage changes were made today of on his medications. Patient will continue to follow-up with his outpatient psychiatric providers and medical providers.
--- NOTE | 2021-04-13 13:59 | BH.TPR ---
Treatment Plan Review Date of Admission:: 03/15/21 Date of Treatment Plan Review:: 04/13/21 Admitting Diagnoses:: F34.1 Dysthymia; major depressive disorder, recurrent, severe without psychosis; PTSD; anxiety disorder, NOS; history of ADHD; Cluster B traits Current Diagnoses:: F34.1 Dysthymia; major depressive disorder, recurrent, severe without psychosis; PTSD; anxiety disorder, NOS; history of ADHD; Cluster B traits Patient's Response to Treatment:: Pt responding well to treatment AEB consistent attendance, providing contributions to group discussion and completing homework. Status of Current Problems and Symptoms: Problems ongoing. Continuing to struggle with emotion regulation, ongoing stressors with girlfriend and grandparents, and difficulty managing anger at times. Problem #1 Problem Name:: Depression Status of Goals:: Obj 1: partially met. Pt able to identify healthy coping skills like opposite action, goal setting, and challenging negative thoughts. Obj 2: Partially met. Per DSM 5 scores at review pt has 33% decrease in depressive symptoms. Team Recommendations:: continue current goal and objectives. continue focusing on identifying and challenging distorted thoughts. Problem #2 Problem Name:: anxiety Status of Goals:: Obj 1: partially met. able to identify healthy calming skills, but struggles with using skills consistently. Often anxious thoughts are about relationship which can result in anger outburst. Obj 2: Per dsm 5 pt has 40% decrease in anxious symptoms. Team Recommendations:: continue current goal and objectives.
--- NOTE | 2021-04-14 09:05 | BH.SGPN.GN ---
Behaviors/Verbalizations/Mental Status: [] Eye contact is good. Motor activity is appropriate. Appearance is disheveled. Speech is Appropriate. Mood is anxious. Affect is congruent. Thoughts are linear and logical. No evidence of psychosis. Reviewed daily check in sheet and no reports of suicidal ideations or intent. Client Response/Progress/Benefit: [] Pt participated at times during group discussions. Attentive however drowsy reporting only 3 hours of sleep last night. Daily symptom tracker notes 11/09 for depressed mood. Shared that he continues to see progress in his mood and outlook for the future. Identifies constant support from his grandparents as being important. In the past pt notes limited support and trust of others which impacted his lifestyle, mood, and outlook. He notes that he practiced assertive communication with his boss and maintain a boundary. Spent time with his fiance which he reported was self-care. Progress noted per pt report. Will continue in IOP to maintain gains and improve functioning. Narrative Note: []
--- NOTE | 2021-04-14 10:15 | BH.SGPN.GN ---
Behaviors/Verbalizations/Mental Status: []Client alert and oriented, casually dressed and groomed. Eye contact fair. Motor activity appropriate. Speech within normal limits. Affect constricted, mood dysthymic. Thoughts linear, logical, no signs of hallucinations or delusions. Client Response/Progress/Benefit: []Client was an engaged participant AEB client listening attentively to others. Client quiet, but appeared to be taking notes and shared he connected with the chapters of life. The group worked together to identify barriers that keep one from choosing a new and healthier path to mental wellness. Attentive during psychoeducation on the chapters of life. Benefited from increased awareness and education on barriers to choosing new wellness paths and chapters of life. Client identified being in chapter 3 because ?I keep falling in the hole and old habits hard.? However, client has also been able to use coping skills and make progress. Will continue IOP tx to improve daily functioning, reinforce healthy coping skills, and combat distortions. Narrative Note: []
--- NOTE | 2021-04-14 11:15 | BH.SGPN.GN ---
Behaviors/Verbalizations/Mental Status: []Client alert and oriented, casual dress, hygiene fair. Eye contact fair. Motor activity appropriate, at times. speech and tone WNL. Affect congruent. mood euthymic. Thoughts linear, logical, no signs of hallucinations or delusions. Client Response/Progress/Benefit: []Client engaged in session AEB listening to discussion and provided input at times. Client attentive during psychoeducation about importance of maintenance plans. Client did well to work with the group to brainstorm strategies to promote making progress towards their desired chapter. Pt completed provided maintenance plan worksheet in small group. Pt identified personal triggers as: negative people, being put on the spot, high energy social settings, stubbornness. Identified warning signs as: poor sleep, smoking more, spacing out, and isolating. Pt identified healthy coping skills as: go look for rocks, deep breathing, thought challenge and opposite action. Seemed to benefit from increasing awareness of triggers, warning signs and coping skills. Will continue IOP tx to prevent decompensation, continue use of healthy coping, and challenge negative thoughts. Narrative Note: []
--- NOTE | 2021-04-15 09:05 | BH.SGPN.GN ---
Behaviors/Verbalizations/Mental Status: [] Eye contact is good. Motor activity is appropriate. Appearance is casual. Speech is Appropriate. Mood is depressed. Affect is flat. Thoughts are linear and logical. No evidence of psychosis. Reviewed daily check in sheet and no reports of suicidal ideations or intent. Client Response/Progress/Benefit: [] Pt participated when prompted. Attentive. Emotion for today is unmotivated. 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 He is unsure if this is related to depression or just being overwhelmed with the same chores like cutting the grass. Denies any significant distress or conflicts with support. Notes that his relatioships with his grandparents and fiance are actually going very well. Also reports that his new job even though it is exhausting is going well too. Progress noted per pt report. Benefited from group support, encouragement, and feedback. Will continue in IOP to prevent decompensation, increase healthy coping, and stabilize mood. Narrative Note: []
--- NOTE | 2021-04-15 10:10 | BH.SGPN.GN ---
Behaviors/Verbalizations/Mental Status: []Client alert and oriented, casually dressed and groomed. Eye contact fair. Motor activity appropriate. Speech within normal limits. Affect constricted, mood dysthymic. Thoughts linear, logical, no signs of hallucinations or delusions. Client Response/Progress/Benefit: []Client passive participant AEB client providing limited contributions during group discussion, however appeared to listen attentively to peers. Client connected with the topic of relationships. Client helped group discuss the benefits of relationships as well as the different types of relationships one can have. Group identified the risk factors for unhealthy relationships which included: poor self-esteem, trauma, lonely, and lying. Listened to group develop a list of the consequences that unhealthy relationships have on mental health. Appeared to benefit from increasing awareness of the impact unhealthy relationships can have on mental health. Pt to continue IOP to increase healthy coping, improve emotion regulation, and prevent decompensation. Narrative Note: []
--- NOTE | 2021-04-19 09:02 | BH.SGPN.GN ---
Behaviors/Verbalizations/Mental Status: [] Client Response/Progress/Benefit: [] Pt eye contact good, casually dressed, motor activity appropriate, speech normal rate and tone, mood euthymic, congruent affect, thoughts linear and intact, no evidence of delusions or hallucinations. Reviewed client?s symptom tracker pt indicated a 1/5, with 5 being severe, for suicidal ideation and a 0/5 for suicidal intention. This is below pt's baseline. Does not appear to be imminent risk to hurt self. Narrative Note: []Patient responded well to session as evidenced by sharing thoughts and feelings and listened attentively to peers. Patient shared consult positive as being able to balance going to work and still attend IOP. Patient identified additional mental positives as continuing to improve his communication with his fianc?e, utilizing upset action, and community with I statements. Patient expresses frustration with work at times because he does not always get out until extremely late. Patient reported he missed IOP yesterday because he did not get out of work until an hour and a half after closing time. Progress noted with patient reporting use of healthy coping skills and challenging negative thoughts. Patient to continue IOP level of care to maintain gains, continue to utilize healthy coping skills consistently, and prevent decompensation.
--- NOTE | 2021-04-19 10:08 | BH.SGPN.GN ---
Behaviors/Verbalizations/Mental Status: []Client alert and oriented, casual dress, hygiene tended to. Eye contact fair to good. Motor activity appropriate. Speech within normal limits. Affect constricted, mood dysthymic. Thoughts linear, logical, no signs of hallucinations or delusions. Client Response/Progress/Benefit: [] Somewhat engaged participant AEB pt providing some input when prompted throughout session and listening attentively to others., though at times appearing to disengage or distracted by own thoughts. Drawing throughout. Listened during psychoeducation portion reviewing fixed mindset, though at times did appear distracted by own thoughts. Pt listening as the group worked to identify how a fixed mindset can impact mental health which included: keeping people stuck, reinforcing fear of failure, giving up, and negative self-talk. Attentive as others shared to personal examples of fixed thoughts, however declined to identify his own. Seemed to benefit from group by increasing awareness of how one's mindset can impact mental health and ability to cope. Pt will continue IOP tx this week to continue to promote healthy coping skills and continue to improve mental health sx management. Narrative Note: []
--- NOTE | 2021-04-19 11:13 | BH.SGPN.GN ---
Behaviors/Verbalizations/Mental Status: []Client alert and oriented, casually dressed and groomed. Eye contact poor. Motor activity appropriate. Speech within normal limits. Affect constricted, mood irritable. Thoughts linear, logical, no signs of hallucinations or delusions. Client Response/Progress/Benefit: []Client responded somewhat well to session, appeared distracted at times, but still participating when prompted. Client took his fixed thought of ?it?s all my fault that I?m in the position I?m in? and discussed how this thought impacts his mental health. Client struggle with reframing his fixed thought and the group offered support and ideas. Client tried to remind himself that he is not entirely responsible for everything that has happened in his life. Client appeared to benefit from gaining awareness of his fixed thought patterns and practicing reframing techniques with peers. Client continues to gain awareness and is learning skill in IOP. Continues to struggle with overcoming negative thought patterns. Client Will continue IOP tx to prevent decompensation, reduce isolation, and improve daily functioning. Narrative Note: []
--- NOTE | 2021-04-21 10:15 | BH.SGPN.GN ---
Behaviors/Verbalizations/Mental Status: []Client alert and oriented, casual dress, hygiene tended to. Eye contact fair. Motor activity appropriate. Speech within normal limits. Affect constricted. Mood dysthymic. Thoughts linear, logical, no signs of hallucinations or delusions. Client Response/Progress/Benefit: []Pt mostly passive participant AEB providing limited input during group discussions however appeared to listened attentively to others. Pt listened to group identify benefits of emotional health which included: improved relationships, increased patience, improved regulation, and improved communication. Pt attentively listened to discussion about barriers of improving emotional wellness. Seemed to benefit from increased awareness of importance of improving emotional wellness. Pt to continue IOP to increase consistent use of healthy coping, challenge negative thoughts and prevent decompensation. Narrative Note: []
--- NOTE | 2021-04-21 11:16 | BH.SGPN.GN ---
Behaviors/Verbalizations/Mental Status: []Client alert and oriented, casually dressed and groomed. Eye contact fair. Motor activity appropriate. Speech within normal limits. Affect constricted, mood depressed. Thoughts linear, logical, no signs of hallucinations or delusions. Client Response/Progress/Benefit: []Client responded well to session, AEB contributing when prompted and participating in activity throughout. Client engaged in the discussion reviewing the ?10 Last TIPS for Emotional Wellness?. Discussed feeling he has struggled with maintaining emotional stability throughout his own life. Client worked within a smaller group to identify how each tip could aid in supporting personal emotional wellness and come up with ways to practice each of the tips reviewed. Client shared connecting with the emotional wellness trait of take responsibility for your own happiness as relying on others to make him happy has not been successful in the past. Client expressed he would like to further work on the emotion wellness trait of keeping expectations of self and others realistic so as to avoid self-sabotage. Client to continue IOP tx to prevent decompensation, improve sx management, and promote application of healthy coping skills. Narrative Note: []
--- NOTE | 2021-04-21 16:34 | BH.MDN ---
Multi-Disciplinary Note - Note 45-min Individual Time Started:: 09:15 Date: 04/21/21 Purpose of session/treatment goals addressed:: Purpose of session was to address goal 1 from master treatment plan. Eye Contact:: Fair Motor Activity:: Restless Appearance:: Casual Speech:: Appropriate Mood:: Dysthymic Affect:: Constricted Thoughts:: Linear, Logical, No evidence of hallucinations/delusions noted Staff Interventions:: motivational interviewing, CBT techniques, strengths perspective, goal setting, other - homework review Client Response:: Pt responded well to session AEB pt openly sharing thoughts and feelings. Pt reported he did complete his homework of getting back into sketching. Pt stated it felt positive to get back into doing what he used to enjoy. Pt reported he would be open to sketching positive affirmations about himself. Pt stated he is starting to connect with his outpatient counselor, reporting he is feeling more hopeful about trauma therapy helping. Pt reported he completed goals of getting his fines paid from various tickets and paid for car insurance. 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 Pt reported he believes being able to drive and not rely on others to go places will improve his mood. Pt reported continued frustration with relationship. Pt stated he has been working on stopping himself before he responds to his girlfriend. Pt reported she continues to block him when she is upset with him. Pt stated he continues to encourage couples counseling but can't seem to get her to fully commit. Pt able to recognize the impact this relationship has on his mental health. Pt noted decrease in anxious symptoms. HOwever pt states his depression seems to be worsening. Pt stated he is having low motivation, increased fatigue and decrease appetite. Pt reported he believes boredom is impacting his mood. Pt reported for homework will continue to take time to sketch and will sketch positive affirmations. Risks/Concerns:: denies current suicidal/homicidal ideation, plan or intention to date. Progress Toward Goals/Plan:: Progress noted with pt reporting engaging in self-care, getting back into sketching, reported decrease in anxiety and showing intiative to get his fines paid off so he can get his drivers license. Pt continues to struggle with relationship stress which negatively impacts his mood. Pt to continue IOP to continue use of healthy coping, improve self-esteem and prevent decompensation. Time Stopped:: 10:00
--- NOTE | 2021-04-25 09:05 | BH.SGPN.GN ---
Behaviors/Verbalizations/Mental Status: [] Eye contact is good. Motor activity is appropriate. Appearance is casual. Speech is Appropriate. Mood is depressed. Affect is flat. Thoughts are linear and logical. No evidence of psychosis. Reviewed daily check in sheet and no reports of suicidal ideations or intent. Client Response/Progress/Benefit: [] Pt was an active participant in group discussion. Attentive. Emotion for today is tired. Shared that his weekend was ok. Spent time with his fiance as well family. He avoided a large family gathering and reports feeling unsure if this was a setback and family gathering can be challenging for him. Met with his uncle and father on Sunday however I couldn't avoid that b/c they came to our house. Overall the day was beneficial. Struggling with keeping up with responsibilities at work and him. Overwhelmed at times. Denies any overwhelming distress. Progress noted. Benefited from group support, encouragement, and feedback. Will continue in IOP to maintain safety, increase healthy coping, and prevent decompensation. Narrative Note: []
--- NOTE | 2021-04-25 10:15 | BH.SGPN.GN ---
Behaviors/Verbalizations/Mental Status: []Client alert and orient. Appearance casual and appropriately groomed. Speech an appropriate rate and tone. Motor activity WNL. Mood dysthymic, affect constricted. No evidence of delusion or hallucinations.? Client Response/Progress/Benefit: []Client responded well to session, attentive and contributing to discussion. Group discussed potential barriers to communication including: yelling, name-calling, unmanaged emotions, facial expressions, and shutting down. Helped group identified positives of having effective communication skills. Attentive during psychoeducation on the four communication styles. Client reported he most often uses passive-aggressive communication style. Able to recognize negative outcomes of communication style. Reported he has been trying to be assertive to help improve his relationships. Seemed to benefit from increased awareness of the different communication styles and identify personal communication style. Client to continue in IOP tx to reduce negative thoughts, increase consistent application of skills and prevent decompensation.
--- NOTE | 2021-04-25 11:18 | BH.SGPN.GN ---
Behaviors/Verbalizations/Mental Status: []Client alert and oriented, casually dressed and groomed. Eye contact fair, at times appearing to fall asleep. Motor activity appropriate. Speech within normal limits. Affect congruent, mood depressed. Thoughts linear, logical, no signs of hallucinations or delusions. Client Response/Progress/Benefit: []Client mostly engaged participant AEB attentiveness at times during discussion and providing input throughout, however appeared to struggle with falling asleep at other times. Client stated he often struggles with using passive-aggressive communication rather than allow himself to be vulnerable and expose his true emotion. Noted struggling with conflict resolution as a result. Attentive during psychoeducation about DEAR MAN (Describe, Express, Assert, Reinforce, Mindfulness, Appear confident, Negotiate) interpersonal communication skill. Client identified communication goal is to improve assertiveness by focusing on the skill of Express by challenging himself to more openly express how he is actually feeling rather than minimizing or avoiding. Client seemed to benefit from increased insight into how his communication style impacts her mental health and relationships. Client progress variable as shown by ongoing struggles in mood stability and reporting increased inconsistent use of healthy coping skills. Will continue IOP tx to continue to promote healthy change behaviors and prevent decompensation. Narrative Note: []
--- NOTE | 2021-04-28 09:05 | BH.SGPN.GN ---
Behaviors/Verbalizations/Mental Status: []Client alert and oriented, casually dressed. Eye contact fair. Motor activity appropriate. Speech within normal limits. Affect constricted, mood anxious and dysthymic. Thoughts linear, logical, no signs of hallucinations or delusions. Reviewed client?s symptom tracker, pt indicates a 2/5, with 5 being severe, for suicidal ideation and a 0/5 for suicidal intent. This is below pt's baseline for suicidal ideation. Client Response/Progress/Benefit: []Pt responded well to session AEB pt openly sharing thoughts and feelings and listening attentively to peers. Pt reported menta health positive as returning to IOP despite missing a session earlier in the week. Pt stated additional mental health positives as first EMDR session going well, work is going good, and spent quality time with his fiance. Pt reported stressor is difficulty adjusting to going to bed early enough when he gets done with work so he can get up for IOP on time. Pt seemed to benefit from expressing thoughts and feelings. Pt to continue IOP to increase healthy coping, challenge distorted thoughts and prevent decompensation. Narrative Note: []
--- NOTE | 2021-04-28 10:15 | BH.SGPN.GN ---
Behaviors/Verbalizations/Mental Status: [] Eye contact is good. Motor activity is appropriate. Appearance is disheveled. Speech is Appropriate. Mood is depressed. Affect is flat. Thoughts are linear and logical. No evidence of psychosis. Client Response/Progress/Benefit: [] Pt was an active participant in group discussion and activity. Attentive during psychoeducation. Along with peers pt contributed to identifying common myths associated with self-care which included; has to be fun, is expensive, has to be by yourself, is selfish, take ups to much time, has to be related to self-hygiene. Group worked together to debunk these myths as well as identify benefits to self-care such as more relaxed, decreased stress, increased motivation, improved mood, and improved relationships. Barriers to completing self-care were identified to be laziness, lack of motivation, not enough time, other things are more important, procrastination, and feeling as if I don't deserve it. Able to relate group activity to topic. Benefited from group by increased awareness of the importance of self-care in mental health. Will continue in IOP to maintain safety, prevent decompensation, and increase coping skills. Narrative Note: []
--- NOTE | 2021-04-28 17:35 | BH.MDN ---
Multi-Disciplinary Note - Note 30-min Individual Time Started:: 11:20 Date: 04/28/21 Purpose of session/treatment goals addressed:: Purpose of session was to address goals 1 and 2 from [facility]. Eye Contact:: Fair Motor Activity:: Appropriate Appearance:: Casual Speech:: Appropriate Mood:: Dysthymic, Other - tired Affect:: Constricted Thoughts:: Linear, Logical, No evidence of hallucinations/delusions noted Staff Interventions:: motivational interviewing, psychoeducation on: - impact of childhood trauma, strengths perspective, goal setting Client Response:: Pt reported he is feeling very tired because he is having difficulty adjusting to going to sleep at a reasonable time. Pt stated since starting to work he can't seem to adjust to going to bed earlier enough to be alert enough for his IOP mornings. Pt stated a positive of starting to work is not having his grandparents say as much about what he isn't doing around the house. Pt reported he is open to a family session with his grandma because he doesn't know if she believes that he is really making progress. Pt stated in family session he would like to talk about clear expectations she has for him while he is living there. Pt stated he is able to see progress he has made since starting IOP but realizes he struggles with allowing himself to feel vita and happiness when doing better. Pt connected this back to his childhood trauma of constantly moving form one foster family to another. Pt stated he wouldn't allow himself to feel vita or happiness as a kid because he didn't want to get his hopes up. Pt reported goal for this week is to identify positives daily. Risks/Concerns:: denies suicidal/homicidal ideation, plan or intention to date. Progress Toward Goals/Plan:: Progress noted with pt reporting doing well at work, which in the past pt struggled with maintaining a job. Additional progress noted with pt continuing to engage in sketching, identifying positives, improved emotion regulation, and able to challenge negative thoughts at times. Continues to struggle with relationship stress and not as consistent with completion of homework since starting work. Pt to continue IOP to maintain gains, increase consistent follow thorugh of goals and prevent decompensation. Time Stopped:: 11:55
== END 2021-05-04 23:59 ==
LOC: BHIOP 09:00
PROVIDERS: Referring Provider Psychiatry & Neurology Psychiatry; Visit Provider Psychiatry & Neurology Psychiatry
DX: F34.1 Dysthymic disorder (principal); F33.2 Major depressive disorder, recurrent severe without psychotic features; F43.10 Post-traumatic stress disorder, unspecified; F41.9 Anxiety disorder, unspecified; F90.9 Attention-deficit hyperactivity disorder, unspecified type
CPT/HCPCS: 99214; H2012; H2020; S9480; 90832; 90834

== ENCOUNTER 2021-05-05 08:22 | Outpatient (RCR) | payer MEDICAID, SELFPAY ==
[2021-05-05 00:28] VITALS: BP 128/76; PULSE 75
--- NOTE | 2021-05-05 09:05 | BH.SGPN.GN ---
Behaviors/Verbalizations/Mental Status: [] Eye contact is good. Motor activity is appropriate. Appearance is casual. Speech is Appropriate. Mood is depressed. Affect is flat. Thoughts are linear and logical. No evidence of psychosis. Reviewed daily check in sheet and pt reports 1/5 for suicidal thoughts and 0/5 for intent. Client Response/Progress/Benefit: [] Pt was an active participant in group discussion. Attentive. Daily symptom tracker notes 3/5 for depression and anxiety. Emotions for today is anxious. Shared that he set a goal to be more empathetic towards others stating I'm selfish. Has been making a more of an effort to be empathetic hoping it will help with relationships. 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 Overall a very short check-in with patients. Limited progress noted per pt report. Benefited from group support, encouragement, and feedback. Will continue in IOP to maintain safety, prevent decompensation, and improve functioning. Narrative Note: []
--- NOTE | 2021-05-05 10:05 | BH.SGPN.GN ---
Behaviors/Verbalizations/Mental Status: []Client alert and oriented, neatly dressed and groomed. Eye contact fair. Motor activity appropriate. Speech within normal limits. Affect constricted, mood dysthymic. Thoughts linear, logical, no signs of hallucinations or delusions. Client Response/Progress/Benefit: []Client engaged in session AEB taking notes and listening attentively to peers. Client shared connecting with the importance of setting boundaries, noting that ?if you don?t love yourself it?s hard to find healthy in others.? Client also shared boundaries reduce stress because ?saying no more.? Client assisted group with identifying benefits of setting boundaries such as reduced stress and improved relationships. Listened during psychoeducation on different types of boundaries. Client seemed to benefit from increased awareness of how boundaries impact mental health and the different types of boundaries there are. Client had been making progress, but currently reports decreased motivation which has impacted client?s engagement in IOP. Will continue IOP tx to prevent worsening of symptoms and increase use of healthy coping skills. Narrative Note: []
--- NOTE | 2021-05-05 11:10 | BH.SGPN.GN ---
Behaviors/Verbalizations/Mental Status: []Client alert and oriented, casually dressed and appropriately groomed. Eye contact fair. Motor activity appropriate. Speech within normal limits. Affect congruent, mood dysthymic. Thoughts linear and intact. no signs of delusions or hallucinations. Client Response/Progress/Benefit: []Client responded well to session AEB listening attentively to peers and providing input and examples throughout. Client engaged in the boundary self-assessment activity. Client stated he mostly struggles stepping away from relationships that take more than they give. Client able to connect the negative consequences maintaining unhealthy relationships has on his mental health. Client was attentive and contributed during psychoeducation on the different boundary styles. Participated in group discussion brainstorming various strategies for improving healthy personal boundaries. Seemed to benefit from increased awareness of personal boundary style and impact this has on mental health. Will continue IOP tx to continue use of healthy coping, challenge distorted thoughts and prevent decompensation. Narrative Note: []
--- NOTE | 2021-05-05 15:36 | BH.MDN ---
Multi-Disciplinary Note - Note 30-min Individual Time Started:: 12:10 Date: 05/05/21 Purpose of session/treatment goals addressed:: Pt requested session because having signficiant distress over his relationship. Purpose of session was to provide support and review skills to help pt cope with stressor. Eye Contact:: Fair Motor Activity:: Restless Appearance:: Casual Speech:: Appropriate Mood:: Anxious, Dysthymic Affect:: Constricted Thoughts:: Linear, Logical, No evidence of hallucinations/delusions noted Staff Interventions:: thought challenging, motivational interviewing, CBT techniques, taught coping skills Client Response:: Pt reported he has been struggling with decreased motivation for the last week. Pt stated he didn't do his dishes all week until his grandma said something to him. Pt reported pressure from his grandma makes him anxious and unmotivated. Pt stated feels like her expectations are too high. Pt agreed relationship stress could be impacting his motivation and ability to get things done around his grandma's house. Pt stated he expressed to his girlfriend last night how he feels about the relationship, but reported it did not go well because she got mad at him sauying she can never have any feelings. Pt stated he is recognizing they are going through a constant charles of getting along, fighting, then him being blocked. Pt able to identify how this relationship is impacting his mental health. Pt reported he has signficiant fear about ending the relationship. However pt reported relationship is making him feel like shit and feels insane. Pt stated he has put so much into the relationship and has the fear of being alone. With help from therapist pt realizes by maintaining current relationship he is reinforcing the negative messages he says to himself. Pt reported will continue to reflect on relationship, stated he is starting to get to the point where he believes he would be better off with the relationship ending. Risks/Concerns:: denies suicidal/homicidal ideation, plan or intention to date. Progress Toward Goals/Plan:: Progress noted with pt being able to recognize the negative impacts his relationship is having on his mental health. Pt's mood often is dependent on how well his relationship is going which has been a hindrance to his treatment progress. Pt could benefit from continued IOP to reinforce healthy coping, challenge negative thoughts and prevent decompensation. Time Stopped:: 12:40
--- NOTE | 2021-05-06 09:05 | BH.SGPN.GN ---
Behaviors/Verbalizations/Mental Status: [] Eye contact is good. Motor activity is appropriate. Appearance is casual. Speech is Appropriate. Mood is depressed. Affect is flat. Thoughts are linear and logical. No evidence of psychosis. Reviewed daily check in sheet and no reports of suicidal ideations or intent. Client Response/Progress/Benefit: [] Pt participated at times during group discussion on the role of blame in mental health. Emotion for today is mixed. Unable to identify any mental health wins. States not much has changed since yesterday. When asked any struggles with managing emotions since yesterday he smiled and indicated some challenges. Did not elaborate. Short and superfical check in today. No progress noted. Limited benefited from group today. Will continue in IOP to maintain safety, improve functioning, and increase healthy coping skills. Narrative Note: []
--- NOTE | 2021-05-06 10:10 | BH.SGPN.GN ---
Behaviors/Verbalizations/Mental Status: []Client alert and oriented, casual dress, hygiene tended to. Eye contact fiar. Motor activity appropriate. Speech within normal limits. Affect constricted, mood dysthymic. Thoughts linear, logical, no signs of hallucinations or delusions. Client Response/Progress/Benefit: []Pt mostly passive participant AEB pt providing input during discussion and listened attentively to peers. Pt worked with group to identify benefits of effective problem solving. Listened during psychoeducation about ABCDE problem solving method. Worked with group to identify barriers to effective problem solving which included: anxious thoughts, impatience, denial, not having skills, feeling overwhelmed, and worries about what other people think. Pt seemed to benefit from increased awareness of strategies to help solve a problem. Pt to continue IOP to increase self-esteem, challenge negative thought patterns and prevent decompensation.
--- NOTE | 2021-05-06 11:10 | BH.SGPN.GN ---
Behaviors/Verbalizations/Mental Status: [] Eye contact is fair to good. Motor activity is appropriate. Appearance is casual. Speech is Appropriate. Mood is dysthymic. Affect is congruent. Thoughts are linear and logical. No evidence of psychosis. Client Response/Progress/Benefit: [] Pt receptive to session as evidenced by remaining attentive, providing input throughout discussion, and completing the problem-solving worksheet. At times pt struggled with shutting down in the activity when believing that others have disengaged and noted he often is impacted by other?s emotions when dealing with outside stressors in life as well. Pt stated the problem he wants to work on is over-relying on other?s attitudes and behaviors to motivate and feel loved himself. Pt identified skills he can utilize to work on this problem include: set strict boundaries, discover passions and hobbies to spend more time in, active listening and practicing empathic responding to regulate emotions rather than reacting based on gut feelings. Discussed that working to solve this problem will aid in improving self-confidence and emotion regulation skills, reduce stress, and improve hope. Pt seemed to benefit from identifying strategies to problem solve through a problem currently impacting mental health. Recommended continued tx to further improve application of healthy coping skills, improve mood stability, and improve boundary setting. Narrative Note: []
--- NOTE | 2021-05-06 15:37 | BH.MDN ---
Multi-Disciplinary Note - Note Family Time Started:: 12:15 Date: 05/06/21 Purpose of session/treatment goals addressed:: Purpose of session was to meet with patient and his grandma to discuss treatment progress, address any concerns from grandma and discuss expectations grandma has for pt at her house. Eye Contact:: Good Motor Activity:: Restless Appearance:: Casual Speech:: Appropriate Mood:: Anxious Affect:: Constricted Thoughts:: Linear, Logical, No evidence of hallucinations/delusions noted Staff Interventions:: psychoeducation on: - impact of childhood education, discharge planning, strengths perspective, other - identified treatment progress and reviewed expectations from grandma Client Response:: Pt expressed to grandma he wanted to have a family session so she could hear from his therapist the progress that he has made. Pt stated in today's session he also would like to know what her expectations are for him while he is living with her. Pt shared with his grandma that he has made progress with increased use of healthy coping, improved mood, aiblity to challenge negative thought patterns, following through with going to work, and able to see more positives in himself. Pt asked therapist to review impact of childhood trauma and why it is helpful for him to know concretely what is expected of him so he doesn't constantly worry about being kicked out. Pt responded well to hearing grandma's expectations. Pt's grandma shared some frustration that pt doesn't do the chores when he is asked until several days later. Pt's grandma reported when pt doesn't do a chore when asked it makes her really anxious because doesn't know when it will be done. Pt expressed understanding of needing to be more specific about when he will complete a chore. Pt's grandma expressed to pt the progress she has seen in pt since starting IOP. Pt reported he finds it helpful to know what his grandma and grandpa expect from him. Pt shared wit his grandma that he finds it challenging to immediately go and start a chore when asked because he struggles with his routine change. Pt reported he will work on being more concrete about when he will start a chore. Risks/Concerns:: denies suicidal/homicidal ideation, plan or intention to date. Progress Toward Goals/Plan:: Progress noted AEB pt's grandma sharing that she has seen positive changes with pt's mood, ability to manage stress and motivation since he has started IOP. Pt seemed to benefit from having a family session with grandma so he can better understand her expectations of him. Plan is for pt to discharge from IOP next week. Time Stopped:: 13:00
--- NOTE | 2021-05-12 09:05 | BH.SGPN.GN ---
Behaviors/Verbalizations/Mental Status: [] Eye contact is good. Motor activity is appropriate. Appearance is casual. Speech is Appropriate. Mood is depressed. Affect is flat. Thoughts are linear and logical. No evidence of psychosis. Reviewed daily check in sheet and no reports of suicidal ideations or intent Client Response/Progress/Benefit: [] Pt participated at times during group discussion. Attentive. Provided feedback to peers. Emotion for today is grumpy. Shared my negative core beliefs are sucking me back in. Shared increased insight that he is dependent on relationships and others to maintain his self-esteem. Group discussed impacting of relying on others for our self-esteem. Mental health win was being assertive with his employer. Has displayed assertive communication since beginning at current employer which has helped him maintain employment. Due to break down last week while at work he has been off with plan to return tonight. Shared that he needs to develop some long-term goals for himself which are not dependent on others (i.e. school). Regression reported by pt. Benefited from group support, encouragement, and feedback. Will continue in IOP to prevent decompensation. Narrative Note: []
--- NOTE | 2021-05-12 10:10 | BH.SGPN.GN ---
Behaviors/Verbalizations/Mental Status: [] Client alert and oriented, casually dressed and groomed. Eye contact good. Motor activity appropriate. Speech within normal limits. Affect congruent, mood dysthymic. Thoughts linear, logical, no signs of hallucinations or delusions. Client Response/Progress/Benefit: [] Pt was an attentive participant in group discussion AEB actively listening, taking notes, as well as completed group worksheet. Remaining mostly passive throughout, though provided some input when connecting to group discussion. Attentive as group discussed how learning to manage anger can positively improve mental health sx management and relationships. Group worked together to define anger and discussed the ways anger can impact one internally and externally. Pt reported that anger can be triggered by external situations and well as internal things such as making assumptions. Pt completed the iceberg exercise and identified emotions that tend to ?live under the surface? of anger. Pt also gained awareness of his typical responses to anger which included: shutting down, avoiding others, cursing, negative self-talk, and negative comments to others. Benefited from group by increasing understanding of the impact of anger on mental health. Recommended continued tx to improve mood management skills, prevent decompensation, and continue to work on improving consistent skill application. Narrative Note: []
--- NOTE | 2021-05-12 11:10 | BH.SGPN.GN ---
Behaviors/Verbalizations/Mental Status: []Client alert and oriented, casually dressed and groomed. Eye contact good. Motor activity appropriate. Speech within normal limits. Affect constricted, mood anxious. Thoughts linear, logical, no signs of hallucinations or delusions. Client Response/Progress/Benefit: []Pt was engaged throughout AEB participating in discussion. Contributed as group brainstormed healthy coping skills for better managing anger which included: deep breathing, counting, exercise, self-reflection questions, and opposite action. Pt also gained awareness of the different physical warning signs pt has when feeling angry. Pt appeared to benefit from identifying different techniques to manage anger as well as gaining awareness of warning signs. Pt selected identifying positives in his life to combat anger. Will continue IOP tx and discharge tomorrow as client has made progress and can continue to benefit from outpatient therapy. Narrative Note: []
--- NOTE | 2021-05-13 10:12 | BH.SGPN.GN ---
Behaviors/Verbalizations/Mental Status: []Client alert and oriented, casually dressed and groomed. Eye contact fair. Motor activity appropriate. Speech within normal limits. Affect congruent, mood dysthymic. Thoughts linear, logical, no signs of hallucinations or delusions. Client Response/Progress/Benefit: [] Pt was an engaged participant in group discussion, providing input and was attentive during psychoeducation. At times did struggle with keeping eyes open but did well to re-engage. Participated in short activity about automatic thoughts, indicated relating to how automatic thoughts can harm beliefs in self and communication with others. Group was primarily educational, therapist introduced and gave examples of the 10 cognitive distortions. Benefited from education and increased awareness of cognitive distortions and role that they play in negative thoughts and emotions. Pt reported connecting with the following distortions: all or nothing thinking, should and musts, and disqualifying the positives. Shared that distortions have led to not believing in himself and giving up on things preemptively. Client to discharge from [facility] tx on this date given progress made and will begin aftercare program next week. Narrative Note: []
--- NOTE | 2021-05-13 11:15 | BH.SGPN.GN ---
Behaviors/Verbalizations/Mental Status: []Client alert and oriented, casually dressed and groomed. Eye contact fair. Motor activity appropriate. Speech within normal limits. Affect constricted, mood anxious. Thoughts linear, logical, no signs of hallucinations or delusions. Client Response/Progress/Benefit: []Client was an active participant AEB client participating in distortion jeopardy. Attentive and contributing during psychoeducation and additional discussion on cognitive distortions. Client engaged while group practiced identifying and reframing distorted thought patterns. Client shared struggling with distortion of ?disqualifying the positives? and identified practicing identifying his positives like he does in process group to help combat this distortion. Client seemed to benefit from reframing distorted thoughts and brainstorming several skills for challenging distortions. Will discharge from IOP tx today as client has made progress and no longer meets criteria for [facility] level of care. Narrative Note: []
--- NOTE | 2021-05-13 11:53 | BH.IGGP_ITS ---
Aftercare Plan - Demographics Treatment End Date:: 05/13/21 Psychiatrist:: Gwendolyn Christopher [facility] Therapist:: Annalise Keene Therapist Phone #:: [phone] - Plan Details Progress/Aftercare Plan Details:: Progress has been shown with improved mood, increased self-awareness, healthier communication skills, increased ability to challenge distorted and negative thoughts, able to maintain employment, and improve emotion regulation. Strategies for Success:: 1. Identify daily positives. 2. Identify and challenge negative thoughts. 3. Self-care. 4. Open honest communication. 5. Small daily goals. 6. Ask yourself what can I do right now to improve this moment. 7. Consistent practice of healthy coping skills. 8. Stop and think before you react. 9. Refer back to [facility] binder to refresh on healthy skills - Appointments Appointments/Referrals to Other Services:: 1. [facility] at [facility] for counseling on 05/18/21. 2. [facility] program on 05/19/21 at 2pm. 3. [facility] on 05/[facility]21 for medication managment - Medications Home Medications: Home Medications mirtazapine [Remeron] 15 mg PO QHS 03/16/21 ergocalciferol (vitamin D2) [Vitamin D2] 50,000 unit PO QWEEK 04/06/21 bupropion HCl [Wellbutrin XL] 150 mg PO DAILY 30 Days #30 tab 04/13/21 citalopram [Celexa] 20 mg PO DAILY 30 Days #30 tab 04/13/21 hydroxyzine HCl 10 mg PO TID PRN 30 Days #90 tab 04/13/21
--- NOTE | 2021-05-13 13:37 | BH.MDN ---
Multi-Disciplinary Note - Note 30-min Individual Time Started:: 09:10 Date: 05/13/21 Purpose of session/treatment goals addressed:: Purpose of session was to review treatment progress, identify strategies to maintain progress and review discharge plans. Eye Contact:: Good Motor Activity:: Appropriate Appearance:: Casual Speech:: Appropriate Mood:: Euthymic, Anxious Affect:: Congruent Thoughts:: Linear, Logical, No evidence of hallucinations/delusions noted Staff Interventions:: discharge planning, strengths perspective Client Response:: Pt reported he is feeling anxious, but excited to be discharging from [facility] today. Pt reported treatment progress to include: acknowledging positives, improved emotional awareness, improved communication skills, being more open with others about how he feels, improved mood, decreased anxiety and maintaining a job. Pt recognizes his motivation and follow through was not as consistent in the last few weeks of treatment, which he attributed to having difficulty adjusting to working and going to [facility]. Pt stated skills to help him stay successful include: opposite action, deep breathing, identifying daily positives, self-care and thought challenge. Pt expressed interest in joining [facility] aftercare program to help with support and accountability. Risks/Concerns:: denies suicidal/homicidal ideation, plan or intention. Progress Toward Goals/Plan:: Progress noted with mild to moderate improvement with depression and anxious symptoms. Pt able to identify emotions, challenge negative thoughts and see progress within himself. Pt continues to struggle with current relationship that reinforces negative thought patterns and hinders treatment progress. Pt's attendance and engagement in [facility] for the last four weeks was decreased which could be attributed to pt's difficulty adjusting to do an intensive treatment program and starting a new job. Plan is for pt to discharge from [facility] today. Pt will follow up with outpatient counselor Marcus at [facility] and start [facility] aftercare program. Time Stopped:: 09:40
--- NOTE | 2021-05-13 14:37 | BH.DS ---
Discharge Summary - Demographics Date of Admission:: 03/15/21 Discharge Date: 05/13/21 Presenting Problems at Admission:: Pt referred by grandparent due to worsening depression, anxiety and suicidal ideation. About a month prior to admission pt had suicidal ideation with plan and intent to shoot self with roommate's gun. Pt did not follow through with plan instead reached out to friends for support. Pt's depression and anxiety had impacted pt's ability to maintain a job for more than 3 months at a time. Pt's anxious symptoms made it hard to go to grocery stores, pump gas, go out with friends and complete daily activities. Pt endorsed depressed mood with no motivation, no energy, increased sleep, anhedonia, no concentration, racing thoughts, paranoia, hopelessness, and worthlessness. Pt denies active suicidal thoughts currently. States he has passive thoughts of , but no thoughts of wanting to actually kill himself. Discharge Diagnoses:: F34.1 Dysthymia; major depressive disorder, recurrent, severe without psychosis; PTSD; anxiety disorder, NOS; history of ADHD; Cluster B traits Reason for Discharge:: Pt has made mild to moderate treatment progress and has met maximum benefit from IOP. - Treatment Progress During Treatment & Response: Pt has made mild to moderate treatment progress since starting IOP per DSM 5 self-report. Pt's depressive symptoms have decreased by 17%, anxiety decreased by 20% and overall symptom reduction of 28%. Pt reports progress with increased self-awareness, improved emotion regulation, improved communication skills, recognition of negative thoughts, and able to identify positives. Pt initially very engaged in group and individual sessions AEB many contributions to group and completion of homework. In pt's last 4 weeks of treatment his engagement and motivation seemed to have decreased with less contributions to group sessions, not completing homework as often and missing sessions. Issues Still to be Addressed:: Pt could benefit from continued work on challenging distorted thoughts, identifying positives, addressing past trauma, consistent use of healthy coping skills, improved emotion regulation, and communication skills. Discharge Recommendations/Instructions:: Pt is recommended to follow up with established appointments. 1. Marcus at [facility] for counseling on 05/18/21. 2. [place] aftercare program on 05/19/21 at 2pm. [facility] Discharge Handout: Complete Discharge Handout with client on aftercare options and continuity of care.
== END 2021-05-13 13:53 | disposition home or self-care (01) ==
LOC: BHIOP 08:22
PROVIDERS: Referring Provider Psychiatry & Neurology Psychiatry; Visit Provider Psychiatry & Neurology Psychiatry
DX: F34.1 Dysthymic disorder (principal); F43.10 Post-traumatic stress disorder, unspecified; F41.9 Anxiety disorder, unspecified; F90.9 Attention-deficit hyperactivity disorder, unspecified type; Z79.899 Other long term (current) drug therapy
CPT/HCPCS: H2012; H2020; S9480; 90832; 90847

== ENCOUNTER 2021-05-19 09:00 | Outpatient (RCR) | payer MEDICAID, SELFPAY ==
--- NOTE | 2021-05-19 14:00 | BH.SGPN.GN ---
Behaviors/Verbalizations/Mental Status: []Client alert and oriented, casual appearance. Eye contact good. Motor activity appropriate. Speech within normal limits. Affect congruent, mood euthymic. Thoughts linear, logical, no signs of hallucinations or delusions. Client Response/Progress/Benefit: []Pt responded well to session AEB pt openly sharing thoughts and feelings and completing worksheet. Pt shared since discharging from [facility] there have been some ups and downs. Pt stated continuing to struggle with stressor of his relationship. Pt identified mental health positive as having a more positive mindset and able to challenge negative thoughts more often. Pt reported additional positive as picking up additional hours a work. Pt responded well to group discussion and review about self-care. Pt stated he will work on following self-care activities: going into nature, art, practice forgiveness, review goals, leave work at work, and get enough sleep. Pt seemed to benefit from support from peers and identifying self-care plan. Pt to continue aftercare to increase consistent application of skills, continue challenging negative thoghts and prevent decompensation. Narrative Note: []
--- NOTE | 2021-05-19 14:28 | BH.MTP_ITS ---
Master Treatment Plan - Patient Information Program Physician:: Dr. Gwendolyn Christopher Primary Therapist:: Annalise Keene [facility] - Psychiatric Diagnoses Psychiatric Diagnoses:: F34.1 Dysthymia; major depressive disorder, recurrent, severe without psychosis; PTSD; anxiety disorder, NOS; history of ADHD; Cluster B traits Diagnosis Code(s):: F 34.1 - Estimated LOS Estimated LOS (in weeks):: 12 Problem/Goal #1 - Problem/Goal #1 Stated Goal:: client will maintain or see a reduction in symptoms AEB client score on the DSM 5 cross-cutting measure and improve client's daily functioning. - Objectives Objective #1 Stated Objective: Client will continue to consistently apply healthy coping skills to maintain progress made in IOP tx. Interventions: Through group therapy, client will review warning signs and triggers as well as healthy coping skills learned in IOP tx to successfully maintain gains while transitioning into outpatient therapy. Discharge Criteria: Client will have accomplished this goal when client's score on the DSM-5 cross-cutting measure has either maintained or reduced over a 12 week period. Target Date: 08/11/21 Review Date: 06/16/21 Status: open Objective #2 Stated Objective: Client will learn and utilize 2-3 maintenance strategies to prevent decompensation. Interventions: Through group therapy, client will be provided with education on healthy maintenance behaviors, relapse prevention techniques, and healthy coping strategies. Discharge Criteria: Client will have accomplished this goal when can report using at least 2 maintenance skills to prevent decompensation. Target Date: 08/11/21 Review Date: 06/16/21 Status: open
== END 2021-06-04 23:59 ==
LOC: BHOG 09:00
PROVIDERS: Referring Provider Psychiatry & Neurology Psychiatry; Visit Provider Psychiatry & Neurology Psychiatry
DX: F34.1 Dysthymic disorder (principal); F33.2 Major depressive disorder, recurrent severe without psychotic features; F43.10 Post-traumatic stress disorder, unspecified; F41.9 Anxiety disorder, unspecified; F90.9 Attention-deficit hyperactivity disorder, unspecified type
CPT/HCPCS: 90853

== ENCOUNTER 2021-06-09 10:24 | Outpatient (RCR) | payer MEDICAID, SELFPAY ==
--- NOTE | 2021-06-16 14:00 | BH.SGPN.GN ---
Behaviors/Verbalizations/Mental Status: []Client alert and oriented, casually dressed and groomed. Eye contact good. Motor activity appropriate. Speech within normal limits. Mood content. Affect congruent. Thoughts linear, logical, no signs of hallucinations or delusions. Client Response/Progress/Benefit: []Client responded well to session, reports feeling ?present? today and shared he woke up today ?actually feeling rested.? Client reports work has been going well and he is looking forward to the rest of his day. Client is waiting to hear back from [facility] to see if he was accepted for the fall. Contributing during discussion of vulnerability and benefits of practicing vulnerability. Shared personal experience of how being vulnerable about his past helped form deeper friendships with his co-workers. Discussed ways we avoid feeling vulnerable and how this negatively affects mental health and relationships. Client shared he wants to work on being more vulnerable by asking for help more often. Appeared to benefit from reflecting on the positive impact vulnerability can have on mental health. Will continue IOP aftercare to promote gains and reinforce healthy coping skills. Narrative Note: []
--- NOTE | 2021-06-16 14:40 | BH.TPR ---
Treatment Plan Review Date of Admission:: 05/19/21 Date of Treatment Plan Review:: 06/16/21 Admitting Diagnoses:: F34.1 Dysthymia; major depressive disorder, recurrent, severe without psychosis; PTSD; anxiety disorder, NOS; history of ADHD; Cluster B traits Current Diagnoses:: F34.1 Dysthymia; major depressive disorder, recurrent, severe without psychosis; PTSD; anxiety disorder, NOS; history of ADHD; Cluster B traits Patient's Response to Treatment:: Pt responding well to treatment AEB pt being actively engaged in group discussions reporting use of skills outside treatment environment. Pt's attendance is variable, but when pt attends he is engaged. Status of Current Problems and Symptoms: Pt continues to experience symptoms of depression such as little interest in doing things and pt reports some reduction in self-care recently. Pt also recently went through a breakup with a long-term girlfriend. Pt continues to report symptoms of irritability, but pt has been able to manage this more effectively. Problem #1 Problem Name:: Pt will maintain or see a reduction in sx AEB client score on the DSM-5 Status of Goals:: Objective 1- partially complete, ongoing work encouraged. Pt's scores on the DSM-5 for depression remain the same since admission to aftercare. Pt's overall DSM-5 scores decreased by 37% and anxiety has decreased by 75%. Objective 2- complete with ongoing work encouraged. Pt identified coping skills such as reaching out to support, challenging negative thoughts, and sticking to a schedule. However, pt reports his self-care has decreased recently which could lead to worsening symptoms if not changed. Team Recommendations:: Recommended pt continue IOP aftercare group in addition to attending regular outpatient counseling in order to maintain gains. Pt is also encouraged to focus on self-care and setting healthy boundaries.
--- NOTE | 2021-06-23 14:00 | BH.SGPN.GN ---
Behaviors/Verbalizations/Mental Status: []Client alert and oriented, casually dressed and groomed. Eye contact good. Motor activity appropriate. Speech within normal limits. Affect congruent. Mood euthymic. Thoughts linear, logical, no signs of hallucinations or delusions. Client Response/Progress/Benefit: []Client responded well to session AEB sharing thoughts and feelings and listening attentively to peers. Client reported feeling ?relaxed today as he has been working to identify positives to combat his typical negative mindset and is more actively engaging in social activities. Reports that his new job has been helpful in this area as several of his co-workers are supportive and client has been able to focus more mindfully on tasks rather than ruminating on other things. Shared increased energy as a result. Benefited from reflecting on areas in which he continues to progress, as well as encouragement provided by the group as well. Client contributed to the discussion on mindfulness and it?s mental, physical, and interpersonal benefits. Client attentive during discussion reviewing and demonstrating various mindfulness practices. Created weekly plan on how client will practice mindfulness over the next 7 days. Appeared to benefit from connecting with peers and creating plan to improve ability to be present. Pt plan included: focus on one small goal each day, remind self to take time to eat, short mindful walking, drawing, and spending time in nature. Will continue IOP aftercare to continue use of healthy coping skills, challenge distorted thoughts and maintain gains made. Narrative Note: []
== END 2021-06-30 04:00 | disposition home or self-care (01) ==
LOC: BHOG 10:24
PROVIDERS: Referring Provider Psychiatry & Neurology Psychiatry; Visit Provider Psychiatry & Neurology Psychiatry
DX: F34.1 Dysthymic disorder (principal); F33.2 Major depressive disorder, recurrent severe without psychotic features; F43.10 Post-traumatic stress disorder, unspecified; F41.9 Anxiety disorder, unspecified; F90.9 Attention-deficit hyperactivity disorder, unspecified type
CPT/HCPCS: 90853

== ENCOUNTER → 2021-10-13 | Outpatient (CLI) | payer MEDICAID, SELFPAY | END | disposition home or self-care (01) | LOC: LABSPEC 11:19 | PROVIDERS: Visit Provider Physician Assistant | DX: J02.9 Acute pharyngitis, unspecified (principal) | CPT/HCPCS: 87070 ==